=== PATIENT | male | born 1960 | race Caucasian/White ===

== ENCOUNTER 2022-08-03 10:32 | Outpatient (OUT) | payer OTHER, SELFPAY ==
[2022-08-03 11:40] LABS: Basophils Absolute Auto 0.1 10^3/uL (0.0-0.1); Basophils Percent Auto 1.3 % (0.2-2.0); Eosinophils Absolute Auto 0.1 10^3/uL (0.0-0.7); Eosinophils Percent Auto 2.5 % (0.9-7.0); Hematocrit 46.7 % (42.0-54.0); Hemoglobin 15.8 g/dL (14.0-18.0); Immature Granulocytes Abs Auto 0.01 10^3/uL (0.00-0.03); Immature Granulocytes Pct Auto 0.2 % (0.0-0.5); Lymphocytes Absolute Auto 1.4 10^3/uL (1.2-3.8); Lymphocytes Percent Auto 28.4 % (20.5-60.0); Mean Corpuscular HGB Conc 33.8 g/dL (29.9-35.2); Mean Corpuscular Hemoglobin 28.3 pg (25.9-34.0); Mean Corpuscular Volume 83.7 fL (80.0-94.0); Mean Platelet Volume 9.5 fL (9.5-13.5); Monocytes Absolute Auto 0.5 10^3/uL (0.3-0.8); Monocytes Percent Auto 10.7 % (1.7-12.0); Neutrophils Absolute Auto 2.7 10^3/uL (1.4-6.5); Neutrophils Percent Auto 56.9 % (43.0-75.0); Platelet Count 217 10^3/uL (150-450); Red Blood Count 5.58 10^6/uL (4.70-6.10); White Blood Count 4.8 10^3/uL (4.0-11.0)
[2022-08-03 12:24] LABS: Alanine Aminotransferase 30 U/L (16-63); Albumin Globulin Ratio 1.3; Alkaline Phosphatase 52 U/L (46-116); Anion Gap 10.7; Aspartate Amino Transferase 21 U/L (15-37); BUN Creatinine Ratio 29.3; Bilirubin Total 1.2 mg/dL (0.2-1.0); Calcium 8.9 mg/dL (8.5-10.1); Carbon Dioxide 28.6 mmol/L (21.0-32.0); Chloride 107 mmol/L (98-107); Chol HDL Ratio 3.8; Cholesterol 183 mg/dL (<=200); Estimated GFR (African America >60 (>=60); Estimated GFR (Non-African Ame >60 (>=60); Globulin 3.2 g/dL; Glucose 94 mg/dL (74-106); HDL Cholesterol 48 mg/dL (40-60); LDL Cholesterol Calculated 119.8 mg/dL; Potassium 4.3 mmol/L (3.5-5.1); Sodium 142 mmol/L (136-145); Total Protein 7.2 g/dL (6.4-8.2); Triglycerides 76 mg/dL (<=150); VLDL CHOLESTEROL 15.2 mg/dL
[2022-08-03 13:10] LABS: Prostate Specific Antigen Scrn 1.04 ng/mL (<=4.00)
== END 2022-08-03 10:33 ==
LOC: LAB 10:37
PROVIDERS: PCP Internal Medicine; Visit Provider Internal Medicine
DX: Z00.00 Encounter for general adult medical examination without abnormal findings (principal); Z12.5 Encounter for screening for malignant neoplasm of prostate
CPT/HCPCS: 36415; 80053; 80061; 85025; G0103

== ENCOUNTER 2023-08-16 09:58 | Outpatient (OUT) | payer OTHER, SELFPAY ==
[2023-08-16 11:08] LABS: Basophils Absolute Auto 0.1 10^3/uL (0.0-0.1); Basophils Percent Auto 1.5 % (0.2-2.0); Eosinophils Absolute Auto 0.1 10^3/uL (0.0-0.7); Eosinophils Percent Auto 3.6 % (0.9-7.0); Hematocrit 43.7 % (42.0-54.0); Hemoglobin 14.2 g/dL (14.0-18.0); Immature Granulocytes Abs Auto 0.01 10^3/uL (0.00-0.03); Immature Granulocytes Pct Auto 0.3 % (0.0-0.5); Lymphocytes Absolute Auto 1.2 10^3/uL (1.2-3.8); Lymphocytes Percent Auto 29.6 % (20.5-60.0); Mean Corpuscular HGB Conc 32.5 g/dL (29.9-35.2); Mean Corpuscular Hemoglobin 28.7 pg (25.9-34.0); Mean Corpuscular Volume 88.3 fL (80.0-94.0); Mean Platelet Volume 9.7 fL (9.5-13.5); Monocytes Absolute Auto 0.4 10^3/uL (0.3-0.8); Monocytes Percent Auto 10.3 % (1.7-12.0); Neutrophils Absolute Auto 2.1 10^3/uL (1.4-6.5); Neutrophils Percent Auto 54.7 % (43.0-75.0); Platelet Count 198 10^3/uL (150-450); Red Blood Count 4.95 10^6/uL (4.70-6.10); Red Cell Distribution Width 13.5 % (11.0-15.0); White Blood Count 3.9 10^3/uL (4.0-11.0)
[2023-08-16 11:28] LABS: Alanine Aminotransferase 21 U/L (16-63); Albumin Globulin Ratio 1.4; Albumin Level 3.8 g/dL (3.4-5.0); Alkaline Phosphatase 48 U/L (46-116); Anion Gap 9.9; Aspartate Amino Transferase 20 U/L (15-37); BUN Creatinine Ratio 25.5; Bilirubin Total 1.5 mg/dL (0.2-1.0); Calcium 8.4 mg/dL (8.5-10.1); Carbon Dioxide 30.6 mmol/L (21.0-32.0); Chloride 108 mmol/L (98-107); Chol HDL Ratio 3.3; Cholesterol 144 mg/dL (<=200); Estimated GFR (African America >60 (>=60); Estimated GFR (Non-African Ame >60 (>=60); Globulin 2.7 g/dL; Glucose 90 mg/dL (74-106); HDL Cholesterol 44 mg/dL (40-60); LDL Cholesterol Calculated 92.4 mg/dL; Potassium 4.5 mmol/L (3.5-5.1); Sodium 144 mmol/L (136-145); Total Protein 6.5 g/dL (6.4-8.2); Triglycerides 38 mg/dL (<=150); VLDL CHOLESTEROL 7.6 mg/dL
[2023-08-16 11:59] LABS: Prostate Specific Antigen Scrn 1.05 ng/mL (<=4.00)
[2023-08-17 19:07] LABS: Lead, Blood (Adult) 11.3 ug/dL (0.0-3.4)
== END 2023-08-16 09:59 | disposition home or self-care (01) ==
LOC: LAB 10:00
PROVIDERS: PCP Internal Medicine; Visit Provider Internal Medicine
DX: Z00.00 Encounter for general adult medical examination without abnormal findings (principal)
CPT/HCPCS: 36415; 80053; 80061; 83655; 85025; G0103

== ENCOUNTER 2023-11-17 11:03 | Outpatient (OUT) | payer OTHER, SELFPAY ==
--- OUTSIDE RECORDS SUMMARY | 2023-11-17 11:10 | XMS_ITS | CCD ---
Author Organization [facility] Care Team Providers Care Piggyback Clerk Name Role Phone MAZIN QUIÑONEZ Unavailable Unavailable GENE STOCK Unavailable Unavailabl MAZIN Girno Unavailable Unavailable GENE STOCK Unavailable UnavailMAZIN Hitchcock Unavailable Unavailable MAZIN QUIÑONEZ Unavailable Unavailable NORA, DR WILSON Attending Unavailable BALL, DR WILSON Admitting Unavailable BALL, DR WILSON Primary Care Unavailable BALL, DR WILSON Consulting Unavailable BALL, DR WILSON Admitting Unavailable BALL, DR WILSON Primary Care Unavailable BALL, DR WILSON Consulting Unavailable BALL, DR WILSON Attending Unavailable [place] Unavailable Allergies Allergy Classification Reported Allergen(s) Allergy Type Date of Onset Reaction(s) Facility (8 sources) erythromycin; Translations: [ERYTHROMYCIN] Drug Allergy 08-24-2016 [facility], Unknown [facility] Repository Medications Current Medications Medication Drug Class(es) Dates Sig (Normalized) Sig (Original) amLODIPine 5 mg oral tablet (7 sources) Dihydropyridine Calcium Channel Monica Start: 06-20-2023 take 1 tablet by mouth once daily Amlodipine Active 0 .ROUTE .COMPLEX June 20, 2023 9:27am TAKE 1 TABLET BY MOUTH DAILY Start: 06-15-2023 End: 06-20-2023 take 1 tablet by mouth once daily Amlodipine Discontinued 0 .ROUTE .COMPLEX June 15, 2023 7:37am June 20, 2023 9:29am TAKE 1 TABLET BY MOUTH DAILY Start: 05-18-2023 End: 06-15-2023 take 5 mg by mouth once daily Amlodipine Discontinued 5 MG PO Daily May 18, 2023 12:00am June 15, 2023 7:37am Finasteride (11 sources) 5-alpha Reductase Inhibitor Start: 08-10-2023 Finasteride Active 0 .ROUTE .COMPLEX August 10, 2023 9:12am TAKE 1 TABLET DAILY Start: 05-12-2023 End: 08-10-2023 take 5 mg by mouth once daily Finasteride Discontinued 5 MG PO Daily May 12, 2023 12:00am August 10, 2023 9:12am take 1 tablet by masha th every twenty-four hours Finasteride 5 MG 1 tablet Orally Once a day Active pravastatin sodium 20 mg oral tablet (12 sources) HMG-CoA Reductase Inhibitor Start: 05-12-2023 Pravastatin Active 0 .ROUTE .COMPLEX 90 May 12, 2023 12:33pm TAKE 1 TABLET DAILY IN THE EVENING Start: 05-12-2023 End: 05-12-2023 take 20 mg by mouth once daily in the evening Pravastatin Discontinued 20 MG PO Every evening May 12, 2023 12:00am May 12, 2023 12:33pm Pravastatin Sodi um 20 mg TAKE 1 TABLET DAILY IN THE EVENING Active tamsulosin hydrochloride 0.4 mg oral capsule (11 sources) alpha-Adrenergic Monica Start: 05-12-2023 End: 08-16-2023 take 2 capsules by mouth once daily at dinner Tamsulosin Active 0.4 MG PO Twice daily 180 90 August 16, 2023 9:21am 2 Capsule Orally Once a day, after evening meal; take 2 capsules by m outh once daily at dinner Tamsulosin HCl 0.4 MG 2 Capsule Orally Once a day, after evening meal Active Completed/Discontinued Medications Medication Drug Class(es) Dates Sig (Normalized) Sig (Original) losartan potassium 25 mg oral tablet (7 sources) Angiotensin 2 Receptor Monica Start: 05-29-2023 End: 06-20-2023 take 25 mg by mouth once daily Losartan Discontinued 25 MG PO Daily June 15, 2023 12:25pm June 20, 2023 9:29am Problems Active Problems Problem Classification Problem Date Documented Date Episodic/Chronic Diseases of white blood cells (1 source) Leukopenia; Translations: [Decreased white blood cell count, unspecified] 08-16-2023 Chronic Disorders of lipid metabolism (17 sources) Pure hypercholesterolemia ; Translations: [Pure hypercholesterolemia , unspecified] Chronic Esophageal disorders (16 sources) Gastro-esophageal reflux disease with esophagitis; Translations: [Gastroesophageal reflux disease with esophagitis without hemorrhage] 05-20-2023 Chronic Essential hypertension (13 sources) Essential hypertension; Translations: [Essential (primary) hypertension] 05-20-2023 Chronic Genitourinary symptoms and ill-defined conditions (3 sources) Nocturia Episodic Hyperplasia of prostate (14 sources) Nocturia due to benign prostatic hypertrophy; Translations: [Benign prostatic hyperplasia with lower urinary tract symptoms] Chronic Other circulatory disease (3 sources) Elevated blood-pressure reading, without diagnosis of hypertension Episodic Other diseases of veins and lymphatics (9 sources) Peripheral venous insufficiency; Translations: [Venous insufficiency (chronic) (peripheral)] 05-20-2023 Episodic Other diseases of veins and lymphatics (6 sources) Venous insufficiency (chronic) (peripheral); Translations: [Venous (peripheral) insufficiency, unspecified] Episodic Other diseases of veins and lymphatics (1 source) Venous insufficiency of leg; Translations: [Venous insufficiency (chronic) (peripheral)] 05-20-2023 Episodic Other nutritional; endocrine; and metabolic disorders (1 source) Hypocalcemia; Translations: [Hypocalcemia] 08-16-2023 Chronic Other nutritional; endocrine; and metabolic disorders (3 sources) Overweight Episodic Other screening for suspected conditions (not mental disorders or infectious disease) (9 sources) Encounter for screening for malignant neoplasm of prostate; Translations: [Patient encounter status] Onset: 08-18-2021 Episodic Past or Other Problems Problem Classification Problem Date Documented Date Episodic/Chronic Abdominal hernia (2 sources) Unilateral inguinal hernia, without obstruction or gangrene, not specified as recurrent; Translations: [Umbilical hernia without obstruction or gangrene] Onset: 02-18-2017 Episodic Other nervous system disorders (1 source) Other acute postprocedural pain; Translations: [Other acute postprocedural pain] Onset: 02-18-2017 Episodic Results Test Name Value Interpretation Reference Range Facility Basophils Auto (Bld) [#/Vol] on 08-16-2023 Basophils (Bld) [#/Vol] 0.1 10 3/uL 0.0-0.[address] [facility] Basophils/100 WBC Auto (Bld) on 08-16-2023 Basophils/100 WBC (Bld) 1.5 % 0.2-2.[address] [facility] Blood lead detectionon 08-15 Lead Ql (Bld) 11.3 ug/dL Abnormal 0.0-3.[address] [facility] Comment on above: Testing performed by Inductively coupled plasma/MassSpectrometry.Verified by repeat analysisAnalysis by inductively coupled plasma/massspectrometry (ICP/MS)This test was developed and its performance characteristicsdetermined by [employer]. It has not been cleared orapproved by the Food and Drug Administration. Environmental Exposure: WHO Recommendation <5.0 Occupational Exposure: OSHA Lead Std 40.0 [place] 30.0 Detection Limit = 1.0Performed at: [place] [id number] Director: Maury Lopez PhD, Phone: [phone] Cholesterol in LDL Calc [Mas s/Vol]on 08-16-2023 Cholesterol in LDL [Mass/Vol] 92.4 mg/dL [facility] Comment on above: <100 mg/dl [id number] 0-129 mg/dl NEAR OR ABOVE [id number] mg/dl BORDERLINE [id number] mg/dl HIGH>190 mg/dl VERY HIGH Cholesterol in VLDL Calc [Ma ss/Vol]on 08-16-2023 Cholesterol in VLDL [Mass/Vol] 7.6 mg/dL [facility] Eosinophils/100 WBC Auto (Bl d)on 08-16-2023 Eosinophils/100 WBC (Bld) 3.6 % 0.9-7.[address] [facility] Erythrocyte distribution wid th Auto (RBC) [Ratio]on 08-16-2023 Erythrocyte distribution width (RBC) [Ratio] 13.5 % 11.0-15.[address] [facility] Estimated glomerular filtrat ion rate (GFR) non- Americanon 08-16-2023 GFR/1.73 sq M.predicted among non-blacks MDRD (S/P/Bld) [Vol rate/Area] mL/min/{1.73_m2} >=[address] [facility] Globulin Calc (S) [Mass/Vol] on 08-16-2023 Globulin (S) [Mass/Vol] 2.7 g/dL [facility] Hematocrit Auto (Bld) [Volum e fraction]on 08-16-2023 Hematocrit (Bld) [Volume fraction] 43.7 % 42.0-54.[address] [facility] Hemoglobin [Mass/volume] in Bloodon 08-16-2023 Hemoglobin (Bld) [Mass/Vol] 14.2 g/dL 14.0-18.[address] [facility] Laboratory - Chemistry and C hemistry - challengeon 08-16-2023 Albumin [Mass/Vol] 3.8 g/dL 3.4-5.0 [facility] ALP [Catalytic activity/Vol] 48 U/L 46-[address] [facility] ALT [Catalytic activity/Vol] 21 U/L 16-[address] [facility] AST [Catalytic activity/Vol] 20 U/L 15-[address] [facility] Bilirubin [Mass/Vol] 1.5 mg/dL High 0.2-1.[address] [facility] Calcium [Mass/Vol] 8.4 mg/dL Low 8.5-10.1 [facility] Chloride [Moles/Vol] 108 mmol/L High 98-[address] [facility] Cholesterol [Mass/Vol] 144 mg/dL <=[address] [facility] Cholesterol in HDL [Mass/Vol] 44 mg/dL 40-[address] [facility] Comment on above: > or =60 mg/dl - LOW CARDIOVASCULAR RISK<40 mg/dl - HIGH CARDIOVASCULAR RISK CO2 [Moles/Vol] 30.6 mmol/L 21.0-32.0 [facility] Creatinine [Mass/Vol] 0.98 mg/dL 0.70-1.[address] [facility] GFR/1.73 sq M.predicted MDRD (S/P/Bld) [Vol rate/Area] mL/min/{1.73_m2} >=[address] [facility] Glucose [Mass/Vol] 90 mg/dL 74-106 [facility] Potassium [Moles/Vol] 4.5 mmol/L 3.5-5.[address] [facility] Protein [Mass/Vol] 6.5 g/dL 6.4-8.2 [facility] Sodium [Moles/Vol] 144 mmol/L 136-145 [facility] Triglyceride [Mass/Vol] 38 mg/dL <=[address] [facility] Urea nitrogen [Mass/Vol] 25.0 mg/dL High 7.0-18.[address] [facility] Urea nitrogen/Creatinin e [Mass ratio] 25.5 mg/mg [facility] Laboratory - Hematology and Cell countson 08-16-2023 Immature granulocytes/100 WBC (Bld) 0.3 % 0.0-0.[address] [facility] Leukocytes [#/volume] correc hal for nucleated erythrocytes in Blood by Automated counon 08-16-2023 WBC corrected for nucl RBC Auto (Bld) [#/Vol] 3.9 10 3/uL Low 4.0-11.[address] [facility] Lymphocytes Auto (Bld) [#/Vo l]on 08-16-2023 Lymphocytes (Bld) [#/Vol] 1.2 10 3/uL 1.2-3.[address] [facility] Lymphocytes/100 WBC Auto (Bl d)on 08-16-2023 Lymphocytes/100 WBC (Bld) 29.6 % 20.5-60.[address] [facility] MCH Auto (RBC) [Entitic mass ]on 08-16-2023 MCH (RBC) [Entitic mass] 28.7 pg 25.9-34.[address] [facility] MCHC Auto (RBC) [Mass/Vol]on 08-16-2023 MCHC (RBC) [Mass/Vol] 32.5 g/dL 29.9-35.[address] [facility] MCV Auto (RBC) [Entitic vol] on 08-16-2023 MCV (RBC) [Entitic vol] 88.3 fL 80.0-94.[address] [facility] Monocytes Auto (Bld) [#/Vol] on 08-16-2023 Monocytes (Bld) [#/Vol] 0.4 10 3/uL 0.3-0.[address] [facility] Monocytes/100 WBC Auto (Bld) on 08-16-2023 Monocytes/100 WBC (Bld) 10.3 % 1.7-12.[address] [facility] Neutrophils Auto (Bld) [#/Vo l]on 08-16-2023 Neutrophils (Bld) [#/Vol] 2.1 10 3/uL 1.4-6.[address] [facility] Neutrophils/100 WBC Auto (Bl d)on 08-16-2023 Neutrophils/100 WBC (Bld) 54.7 % 43.0-75.[address] [facility] No Panel Informationon 08-15 Eosinophils # (Auto) 0.1 10 3/uL 0.0-0.[address] [facility] Immature Granulocyte # (Auto) 0.01 10 3/uL 0.00-0.[address] [facility] Prostate Specific Antigen Screen 1.05 ng/mL <=4.[address] [facility] Platelet mean volume Auto (B ld) [Entitic vol]on 08-16-2023 Platelet mean volume (Bld) [Entitic vol] 9.7 fL 9.5-13.[address] [facility] Platelets Auto (Bld) [#/Vol] on 08-16-2023 Platelets (Bld) [#/Vol] 198 10 3/uL 150-[address] [facility] RBC Auto (Bld) [#/Vol]on RBC (Bld) [#/Vol] 4.95 10 6/uL 4.70-6.10 [facility] Serum or plasma albumin/glob ulin mass ratioon 08-16-2023 Albumin/Globulin [Mass ratio] 1.4 {ratio} [facility] Serum or plasma anion gap de terminationon 08-16-2023 Anion gap [Moles/Vol] 9.9 mmol/L [facility] Serum or plasma total choles terol/high density lipoprotein (HDL) cholesterol mass kg 08-16-2023 Cholesterol.total/ Cholesterol in HDL [Mass ratio] 3.3 {ratio} [facility] Comment on above: 3.3 - 4.4 LOW RISK4. 4 - 7.1 AVERAGE RISK7.1 - 11.0 MODERATE RISK>11.0 HIGH RISK CBC AUTO DIFFon 08-14-2021 BASO # 0.0 103/ul Normal 0.0-0.1 [facility] Comment on above: Performed By: #### C BC #### [facility] [address] [place] [address] Dr. Ridge Conklin Basophils/100 WBC (Bld) 0.9 % Normal 0.2-2.0 [facility] Comment on above: Performed By: #### C BC #### [facility] [address] [place] [address] Dr. Ridge Conklin EO # 0.1 103/ul Normal 0.0-0.7 [facility] Comment on above: Performed By: #### C BC #### [facility] [address] [place] [address] Dr. Ridge Conklin Eosinophils/100 WBC (Bld) 1.1 % Normal 0.9-7.0 [facility] Comment on above: Performed By: #### C BC #### [facility] [address] [place] [address] Dr. Ridge Conklin Erythrocyte distribution width (RBC) [Ratio] 13.3 % Normal 11.0-15.0 [facility] Comment on above: Performed By: #### C BC #### [facility] [address] [place] [address] Dr. Ridge Conklin Hematocrit (Bld) [Volume fraction] 46.6 % Normal 42.0-54.0 [facility] Comment on above: Performed By: #### C BC #### [facility] [address] [place] [address] Dr. Ridge Conklin Hemoglobin (Bld) [Mass/Vol] 15.3 g/dL Normal 14.0-18.0 [facility] Comment on above: Performed By: #### C BC #### [facility] [address] [place] [address] Dr. Ridge Conklin IG # 0.00 10e3/ul Normal 0.00-0.03 [facility] Comment on above: Performed By: #### C BC #### [facility] [address] [place] [address] Dr. Ridge Conklin IG % 0.0 % Normal 0.0-0.5 [facility] Comment on above: Performed By: #### C BC #### [facility] [address] [place] [address] Dr. Ridge Conklin LYMPH # 1.0 103/ul Critically low 1.2-3.8 [facility] Comment on above: Performed By: #### C BC #### [facility] [address] [place] [address] Dr. Ridge Conklin Lymphocytes/100 WBC (Bld) 22.0 % Normal 20.5-60.0 [facility] Comment on above: Performed By: #### C BC #### [facility] [address] [place] [address] Dr. Ridge Conklin MANUAL DIFF REQ NO Normal [facility] Comment on above: Performed By: #### C BC #### [facility] [address] [place] [address] Dr. Ridge Conklin MCH (RBC) [Entitic mass] 28.8 pg Normal 25.9-34.0 [facility] Comment on above: Performed By: #### C BC #### [facility] [address] [place] [address] Dr. Ridge Conklin MCHC (RBC) [Mass/Vol] 32.8 g/dL Normal 29.9-35.2 [facility] Comment on above: Performed By: #### C BC #### [facility] [address] [place] [address] Dr. Ridge Conklin MCV (RBC) [Entitic vol] 87.6 fL Normal 80.0-94.0 [facility] Comment on above: Performed By: #### C BC #### [facility] [address] [place] [address] Dr. Ridge Conklin MONO # 0.4 103/ul Normal 0.3-0.8 [facility] Comment on above: Performed By: #### C BC #### [facility] [address] [place] [address] Dr. Ridge Conklin Monocytes/100 WBC (Bld) 9.4 % Normal 1.7-12.0 [facility] Comment on above: Performed By: #### C BC #### [facility] [address] [place] [address] Dr. Ridge Conklin NEUT # 3.0 103/ul Normal 1.4-6.5 [facility] Comment on above: Performed By: #### C BC #### [facility] [address] [place] [address] Dr. Ridge Conklin Neutrophils/100 WBC (Bld) 66.6 % Normal 43.0-75.0 [facility] Comment on above: Performed By: #### C BC #### [facility] [address] [place] [address] [address] Ridge Conklin Platelet mean volume (Bld) [Entitic vol] 9.1 fL Critically low 9.5-13.5 [facility] Comment on above: Performed By: #### C BC #### [facility] [address] [place] [address] [address] Ridge Conklin PLT 213 103/ul Normal 150-450 [facility] Comment on above: Performed By: #### C BC #### [facility] [address] [place] [address] [address] Ridge Conklin RBC 5.32 106/ul Normal 4.70-6.10 [facility] Comment on above: Performed By: #### C BC #### [facility] [address] [place] [address] Dr. Ridge Conklin WBC 4.5 103/ul Normal 4.0-11.0 [facility] Comment on above: Performed By: #### C BC #### [facility] [address] [place] [address] Dr. Ridge Conklin LIPID PROFILEon 08-14-2021 CHOL-HDL RATIO NORM SEE BELOW Normal [facility] Comment on above: Result Comment: 3.3 - 4.4 LOW RISK 4.4 - 7.1 AVERAGE RISK 7.1 - 11.0 MODERATE RISK >11.0 HIGH RISK Performed By: #### T SH, CMP, LIPID #### [facility] [address] [place] [address] Dr. Ridge Conklin Cholesterol [Mass/Vol] 154 mg/dL Normal <=200 [facility] Comment on above: Performed By: #### T SH, CMP, LIPID #### [facility] [address] [place] [address] Dr. Ridge Conklin Cholesterol in HDL [Mass/Vol] 45 mg/dL Normal 40-60 [facility] Comment on above: Performed By: #### T SH, CMP, LIPID #### [facility] [address] [place] [address] Dr. Ridge Conklin Cholesterol in LDL [Mass/Vol] 101.2 mg/dL Normal [facility] Comment on above: Performed By: #### T SH, CMP, LIPID #### [facility] [address] [place] [address] [address] Ridge Conklin Cholesterol.total/ Cholesterol in HDL [Mass ratio] 3.4 {ratio} Normal [facility] Comment on above: Performed By: #### T SH, CMP, LIPID #### [facility] [address] [place] [address] [address] Ridge Conklin HDL NORMAL > or = 60 mg/dl - LO W CARDIOVASCULAR RISK <40 mg/dl - HIGH CARDIOVASCULAR RISK Normal [facility] Comment on above: Performed By: #### T SH, CMP, LIPID #### [facility] [address] [place] [address] Dr. Ridge Conklin LDL CALC NORMAL SEE BELOW Normal [facility] Comment on above: Result Comment: <100 mg/dl OPTIMAL 100 - 129 mg/dl NEAR OR ABOVE OPTIMAL 130 - 159 mg/dl BORDERLINE HIGH 160 - 189 mg/dl HIGH >190 mg/dl VERY HIGH Performed By: #### T SH, CMP, LIPID #### [facility] [address] [place] [address] Dr. Ridge Conklin Triglyceride [Mass/Vol] 39 mg/dL Normal <=150 [facility] Comment on above: Performed By: #### T SH, CMP, LIPID #### [facility] [address] [place] [address] Dr. Ridge Conklin VLDL CALC 7.8 mg/dL Normal [facility] Comment on above: Performed By: #### T SH, CMP, LIPID #### [facility] [address] [place] [place] [address] [address] Ridge Conklin PROF 14(COMP METB)on 022 Albumin [Mass/Vol] 4.3 g/dL Normal 3.4-5.0 [facility] Comment on above: Performed By: #### T SH, CMP, LIPID #### [facility] [address] [place] [address] Dr. Ridge Conklin Albumin/Globulin [Mass ratio] 1.5 {ratio} Normal [facility] Comment on above: Performed By: #### T SH, CMP, LIPID #### [facility] [address] [place] [address] [address] Ridge Conklin ALP [Catalytic activity/Vol] 47 U/L Normal 46-116 [facility] Comment on above: Performed By: #### T SH, CMP, LIPID #### [facility] [address] [place] [address] [address] Ridge Conklin ALT [Catalytic activity/Vol] 25 U/L Normal 16-63 [facility] Comment on above: Performed By: #### T SH, CMP, LIPID #### [facility] [address] [place] [address] Dr. Ridge Conklin Anion gap [Moles/Vol] 12.6 mmol/L Normal [facility] Comment on above: Performed By: #### T SH, CMP, LIPID #### [facility] [address] [place] [address] Dr. Ridge Conklin AST [Catalytic activity/Vol] 17 U/L Normal 15-37 [facility] Comment on above: Performed By: #### T SH, CMP, LIPID #### [facility] [address] [place] [address] Dr. Ridge Conklin Bilirubin [Mass/Vol] 1.4 mg/dL Critically high 0.2-1.0 [facility] Comment on above: Performed By: #### T SH, CMP, LIPID #### [facility] [address] [place] [address] Dr. Ridge Conklin Calcium [Mass/Vol] 8.9 mg/dL Normal 8.5-10.1 [facility] Comment on above: Performed By: #### T SH, CMP, LIPID #### [facility] [address] [place] [address] Dr. Ridge Conklin Chloride [Moles/Vol] 108 mmol/L Critically high 98-107 [facility] Comment on above: Performed By: #### T SH, CMP, LIPID #### [facility] [address] [place] [address] Dr. Ridge Conklin CO2 [Moles/Vol] 26.5 mmol/L Normal 21.0-32.0 [facility] Comment on above: Performed By: #### T AIDEN CMP, LIPID #### [facility] [address] [place] [address] [address] Ridge Conklin Creatinine [Mass/Vol] 1.10 mg/dL Normal 0.70-1.30 [facility] Comment on above: Performed By: #### T AIDEN, CMP, LIPID #### [facility] [address] [place] [address] [address] Ridge Conklin EGFR-AF PALESTINIAN >60 Normal >=60 [facility] Comment on above: Performed By: #### T AIDEN CMP, LIPID #### [facility] [address] [place] [address] Dr. Ridge Conklin EGFR-NON AF PALESTINIAN >60 Normal >=60 [facility] Comment on above: Performed By: #### T AIDEN CMP, LIPID #### [facility] [address] [place] [address] [address] Ridge Conklin Globulin (S) [Mass/Vol] 2.8 g/dL Normal [facility] Comment on above: Performed By: #### T AIDEN CMP, LIPID #### [facility] [address] [place] [address] Dr. Ridge Conklin Glucose [Mass/Vol] 98 mg/dL Normal 74-106 [facility] Comment on above: Performed By: #### T AIDEN CMP, LIPID #### [facility] [address] [place] [address] [address] Ridge Conklin Potassium [Moles/Vol] 4.1 mmol/L Normal 3.5-5.1 [facility] Comment on above: Performed By: #### T AIDEN, CMP, LIPID #### [facility] [address] [place] [address] [address] Ridge Conklin Protein [Mass/Vol] 7.1 g/dL Normal 6.4-8.2 [facility] Comment on above: Performed By: #### T AIDEN, CMP, LIPID #### [facility] [address] [place] [address] Dr. Ridge Conklin Sodium [Moles/Vol] 143 mmol/L Normal 136-145 [facility] Comment on above: Performed By: #### T AIDEN, CMP, LIPID #### [facility] [address] [place] [address] Dr. Ridge Conklin Urea nitrogen [Mass/Vol] 31.0 mg/dL Critically high 7.0-18.0 [facility] Comment on above: Performed By: #### T AIDEN, CMP, LIPID #### [facility] [address] [place] [address] Dr. Ridge Conklin Urea nitrogen/Creatinin e [Mass ratio] 28.2 mg/mg Normal [facility] Comment on above: Performed By: #### T AIDEN, CMP, LIPID #### [facility] [address] [place] [address] Dr. Ridge Conklin TSHon 08-14-2021 TSH 1.108 uIU/mL Normal 0.358-3.740 [facility] Comment on above: Performed By: #### T AIDEN, CMP, LIPID #### [facility] [address] [place] [address] Dr. Ridge Conklin CBC AUTO DIFFon 10-02-2020 BASO # 0.0 103/ul Normal 0.0-0.1 [facility] Comment on above: Performed By: #### C BC #### [facility] [address] [place] [address] Gabi Rosailnd Basophils/100 WBC (Bld) 0.6 % Normal 0.2-2.0 [facility] Comment on above: Performed By: #### C BC #### [facility] [address] [place] [address] Gabi Rosalind EO # 0.1 103/ul Normal 0.0-0.7 [facility] Comment on above: Performed By: #### C BC #### [facility] [address] [place] [address] Gabi Rosalind Eosinophils/100 WBC (Bld) 1.8 % Normal 0.9-7.0 [facility] Comment on above: Performed By: #### C BC #### [facility] [address] [place] [address] Gabi Rosalind Erythrocyte distribution width (RBC) [Ratio] 13.3 % Normal 11.0-15.0 [facility] Comment on above: Performed By: #### C BC #### [facility] [address] [place] [address] Gabi Rosalind Hematocrit (Bld) [Volume fraction] 47.5 % Normal 42.0-54.0 [facility] Comment on above: Performed By: #### C BC #### [facility] [address] [place] [address] Gabi Rosalind Hemoglobin (Bld) [Mass/Vol] 15.4 g/dL Normal 14.0-18.0 [facility] Comment on above: Performed By: #### C BC #### [facility] [address] [place] [address] Gabi Rosalind IG # 0.01 10e3/ul Normal 0.00-0.03 [facility] Comment on above: Performed By: #### C BC #### [facility] [address] [place] [address] Gabi Rosalind IG % 0.2 % Normal 0.0-0.5 [facility] Comment on above: Performed By: #### C BC #### [facility] [address] [place] [address] Gabi Rosalind LYMPH # 1.0 103/ul Critically low 1.2-3.8 [facility] Comment on above: Performed By: #### C BC #### [facility] [address] [place] [address] Gabi Rosalind Lymphocytes/100 WBC (Bld) 20.3 % Critically low 20.5-60.0 [facility] Comment on above: Performed By: #### C BC #### [facility] [address] [place] [address] Gabi Rosalind MANUAL DIFF REQ NO Normal [facility] Comment on above: Performed By: #### C BC #### [facility] [address] [place] [address] Gabi Boyer MCH (RBC) [Entitic mass] 28.6 pg Normal 25.9-34.0 [facility] Comment on above: Performed By: #### C BC #### [facility] [address] [place] [address] Gabi Boyer MCHC (RBC) [Mass/Vol] 32.4 g/dL Normal 29.9-35.2 [facility] Comment on above: Performed By: #### C BC #### [facility] [address] [place] [address] Gabi Boyer MCV (RBC) [Entitic vol] 88.1 fL Normal 80.0-94.0 [facility] Comment on above: Performed By: #### C BC #### [facility] [address] [place] [address] Gabi Boyer MONO # 0.5 103/ul Normal 0.3-0.8 [facility] Comment on above: Performed By: #### C BC #### [facility] [address] [place] [address] Gabi Boyer Monocytes/100 WBC (Bld) 9.9 % Normal 1.7-12.0 [facility] Comment on above: Performed By: #### C BC #### [facility] [address] [place] [address] Gabi Boyer NEUT # 3.3 103/ul Normal 1.4-6.5 [facility] Comment on above: Performed By: #### C BC #### [facility] [address] [place] [address] Gabi Boyer Neutrophils/100 WBC (Bld) 67.2 % Normal 43.0-75.0 [facility] Comment on above: Performed By: #### C BC #### [facility] [address] [place], [place] [id number] Gabi Boyer Platelet mean volume (Bld) [Entitic vol] 9.3 fL Critically low 9.5-13.5 [facility] Comment on above: Performed By: #### C BC #### [facility] [address] [place], [place] [address] Gabi Rosalind PLT 200 103/ul Normal 150-450 [facility] Comment on above: Performed By: #### C BC #### [facility] [address] [address] Gabi Rosalind RBC 5.39 106/ul Normal 4.70-6.10 [facility] Comment on above: Performed By: #### C BC #### [facility] [address] [id number] Gabi Rosalind WBC 4.9 103/ul Normal 4.0-11.0 [facility] Comment on above: Performed By: #### C BC #### [facility] [address] [place] [address] Gabi Rosalind LIPID PROFILEon 10-02-2020 CHOL-HDL RATIO NORM SEE BELOW Normal [facility] Comment on above: Result Comment: 3.3 - 4.4 LOW RISK 4.4 - 7.1 AVERAGE RISK 7.1 - 11.0 MODERATE RISK >11.0 HIGH RISK Performed By: #### T SH, CMP, LIPID #### [facility] [address] [place] [address] Gabi Rosalind Cholesterol [Mass/Vol] 155 mg/dL Normal <=200 [facility] Comment on above: Performed By: #### T SH, CMP, LIPID #### [facility] [address] [place] [address] Gabi Rosalind Cholesterol in HDL [Mass/Vol] 47 mg/dL Normal [facility] Comment on above: Performed By: #### T SH, CMP, LIPID #### [facility] [address] [place] [address] Gabi Rosalind Cholesterol in LDL [Mass/Vol] 91.0 mg/dL Normal [facility] Comment on above: Performed By: #### T SH, CMP, LIPID #### [facility] [address] [place] [address] Gabi Rosalind Cholesterol.total/ Cholesterol in HDL [Mass ratio] 3.3 {ratio} Normal [facility] Comment on above: Performed By: #### T SH, CMP, LIPID #### [facility] [address] [place] [address] Gabi Rosalind HDL NORMAL > or = 60 mg/dl - LO W CARDIOVASCULAR RISK <40 mg/dl - HIGH CARDIOVASCULAR RISK Normal [facility] Comment on above: Performed By: #### T AIDEN, CMP, LIPID #### [facility] [address] [id number] Gabi Rosalind LDL CALC NORMAL SEE BELOW Normal [facility] Comment on above: Result Comment: <100 mg/dl OPTIMAL 100 - 129 mg/dl NEAR OR ABOVE OPTIMAL 130 - 159 mg/dl BORDERLINE HIGH 160 - 189 mg/dl HIGH >190 mg/dl VERY HIGH Performed By: #### T AIDEN, CMP, LIPID #### [facility] [address] [place] [address] Gabi Rosalind Triglyceride [Mass/Vol] 85 mg/dL Normal <=150 [facility] Comment on above: Performed By: #### T AIDEN CMP, LIPID #### [facility] [address] [place] [address] Gabi Rosalind VLDL CALC 17.0 mg/dL Normal [facility] Comment on above: Performed By: #### T AIDEN, CMP, LIPID #### [facility] [address] [place], [place] [phone] Gabi Boyer PROF 14(COMP METB)on 021 Albumin [Mass/Vol] 4.5 g/dL Normal 3.5-5.0 [facility] Comment on above: Performed By: #### T AIDEN, CMP, LIPID #### [facility] [address] [place], [place] [address] Gabi Rosalind Albumin/Globulin [Mass ratio] 1.5 {ratio} Normal [facility] Comment on above: Performed By: #### T SH, CMP, LIPID #### [facility] [address] [place], [place] [address] Gabi Rosalind ALP [Catalytic activity/Vol] 38 U/L Normal 38-126 [facility] Comment on above: Performed By: #### T SH, CMP, LIPID #### [facility] [address] [place] [address] Gabi Rosalind ALT [Catalytic activity/Vol] 20 U/L Critically low 21-72 [facility] Comment on above: Performed By: #### T SH, CMP, LIPID #### [facility] [address] [place] [address] Gabi Rosalind Anion gap [Moles/Vol] 13.7 mmol/L Normal [facility] Comment on above: Performed By: #### T SH, CMP, LIPID #### [facility] [address] [place] [address] Gabi Rosalind AST [Catalytic activity/Vol] 22 U/L Normal 17-59 [facility] Comment on above: Performed By: #### T SH, CMP, LIPID #### [facility] [address] [place] [address] Gabi Rosalind Bilirubin [Mass/Vol] 0.7 mg/dL Normal 0.2-1.3 [facility] Comment on above: Performed By: #### T SH, CMP, LIPID #### [facility] [address] [place] [address] Gabi Rosalind Calcium [Mass/Vol] 8.9 mg/dL Normal 8.4-10.2 [facility] Comment on above: Performed By: #### T SH, CMP, LIPID #### [facility] [address] [place] [address] Gabi Rosalind Chloride [Moles/Vol] 108 mmol/L Critically high 98-107 [facility] Comment on above: Performed By: #### T SH, CMP, LIPID #### [facility] [address] [place] [address] Gabi Rosalind CO2 [Moles/Vol] 28.1 mmol/L Normal 22.0-30.0 [facility] Comment on above: Performed By: #### T SH, CMP, LIPID #### [facility] [address] [place] [address] Gabi Rosalind Creatinine [Mass/Vol] 0.89 mg/dL Normal 0.66-1.25 [facility] Comment on above: Performed By: #### T SH, CMP, LIPID #### [facility] [address] [place], [place] [address] Gabi Rosalind EGFR-AF PALESTINIAN >60 Normal >=60 [facility] Comment on above: Performed By: #### T SH, CMP, LIPID #### [facility] [address] [phone] Gabi Rosalind EGFR-NON AF PALESTINIAN >60 Normal >=60 [facility] Comment on above: Performed By: #### T SH, CMP, LIPID #### [facility] [address] [id number] Gabi Rosalind Globulin (S) [Mass/Vol] 3.0 g/dL Normal [facility] Comment on above: Performed By: #### T SH, CMP, LIPID #### [facility] [address] [place] [address] Gabi Rosalind Glucose [Mass/Vol] 104 mg/dL Normal 74-106 [facility] Comment on above: Performed By: #### T SH, CMP, LIPID #### [facility] [address] [place] [address] Gabi Rosalind Potassium [Moles/Vol] 4.8 mmol/L Normal 3.4-5.0 [facility] Comment on above: Performed By: #### T SH, CMP, LIPID #### [facility] [address] [place] [address] Gabi Rosalind Protein [Mass/Vol] 7.5 g/dL Normal 6.1-8.2 [facility] Comment on above: Performed By: #### T SH, CMP, LIPID #### [facility] [address] [place] [address] Gabi Rosalind Sodium [Moles/Vol] 145 mmol/L Normal 137-145 [facility] Comment on above: Performed By: #### T SH, CMP, LIPID #### [facility] [address] [place] [address] Gabi Rosalind Urea nitrogen [Mass/Vol] 28.0 mg/dL Critically high 9.0-20.0 [facility] Comment on above: Performed By: #### T SH, CMP, LIPID #### [facility] [address] [place], [place] [address] Gabi Rosalind Urea nitrogen/Creatinin e [Mass ratio] 31.5 mg/mg Normal [facility] Comment on above: Performed By: #### T AIDEN, CMP, LIPID #### [facility] [address] [place] [address] Gabi Boyer TSHon 10-02-2020 TSH 1.974 uIU/mL Normal 0.470-4.680 [facility] Comment on above: Performed By: #### T AIDEN, CMP, LIPID #### [facility] [address] [place] [address] Gabi Boyer TSH RANGE SEE BELOW Normal [facility] Comment on above: Result Comment: <0.3 4 UIU/ml HYPERTHYROID 0.34-5.60 UIU/ml EUTHYROID >5.60 UIU/ml HYPOTHYROID Performed By: #### T AIDEN, CMP, LIPID #### [facility] [address] [place] [address] Gabi Boyer CNPAwa 11-29-2017 CNPN Telephone (AVPRAD) ----CHRISTOPH GARCIA ([id number]) 1960 MDate Time Provider Owryamrlhy45/2/18 MAGGI GARCIA) AVPELIZABETH During your visit today, we recorded the following information about you:Maggi Garcia PA-C 11/29/2017 3:43 PM SignedCalled patient and LMOVM to call our office back. Patient has been having leftflank and groin pain, so we had him get an urinalysis today. Resultsdemonstrated urine crystals. Discussed with Dr. Quiñonez. He recommends drinkingcranberry juice and a lot of water to hydrate himself and that should clear upon its own. No indication of infection. When patient calls back, please relaymessage below. Thank you.Allergies As of Date: 11/29/2017 Noted Allergy ReactionERTHROMYCIN (ERYTHROMYCIN) 08/24/2016 4 - HivesDate Reviewed: 11/29/2017Reviewed by: Mazin Quiñonez - Jong AssessedReason for Visit: Results [95]Prescriptions as of 11/29/2017 Sig: FINASTERIDE 5 MG TABLET TAMSULOSIN 0.4 MG CAPSULE Take 0.4 mg by mouth. PRAVASTATIN 20 MG TABLET Take 20 mg by mouth once araseli*Problem List As Of Date 11/29/2017 Noted Resolved Inguinal hernia [K40.90] INVALID FOR* More... Umbilical hernia [K42.9] INVALID FOR* More... Status:Closed by MAGGI GARCIA PA-C on 11/29/17 [facility] [facility] Office Visit (GENANMOL) ----CHRISTOPH GARCIA ([id number]) 1960 MDate Time Provider Department03/08/17 10:45 AM MAZIN QUIÑONEZ During your visit today, we recorded the following information about you:Referring Provider: GENE STOCK [[id number]]Allergies As of Date: 03/08/2017 Noted Allergy ReactionERTHROMYCIN (ERYTHROMYCIN) 08/24/2016 4 - HivesDate Reviewed: 03/08/2017Reviewed by: Mazin Quiñonez - Jong AssessedReason for Visit: Post Op [174]Primary Visit Diagnosis:Non-recurrent unilateral inguinal hernia without obstruction or gangrene [K40.90] Other Visit Diagnosis:Umbilical hernia without obstruction and without gangrene [K42.9]Prescriptions as of 03/08/2017 Sig: TAMSULOSIN 0.4 MG CAPSULE Take 0.4 mg by mouth. PRAVASTATIN 20 MG TABLET Take 20 mg by mouth once araseli*Problem List As Of Date 03/08/2017 Noted Resolved Inguinal hernia [K40.90] INVALID FOR* More... Umbilical hernia [K42.9] INVALID FOR* More... Status:Closed by MAZIN QUIÑONEZ MD on 03/08/17 Normal [facility] PROGRESSon 03-08-2017 PROGRESS HNO ID: [id number] thor: Mazin Mcgrathervice: General SurgeryAuthor Type: PhysicianType: Progress NotesFiled: 03/08/2017 1:18 PMNote Text:[facility] General SurgeryMazin Quiñonez M.D., F.A.CWoody.[facility]botCritical [facility] Hospital[address] [facility].[place], [place] [address]Riwhj: [phone]: [phone]: CHRISTOPH GARCIA [facility] NO: [id number] OF SERVICE: 03/08/2017PLACE OF ENCOUNTER: [place]The patient is status post repair of left inguinal hernia and umbilicalhernia on 02/18/2017. The patient is very pleased and doing extremelywell to date. Minor intermittent discomfort in the left groin withspecific movements. This is gradually improving and allowing him toperform all normal activities that he desires without restriction. He isreturned to work for some time now. In fact, he went back four dayspostop. The wound is healing nicely. He can gradually resume tonormal activities. He will call or return as needed.MAZIN QUIÑONEZ M.D.BB/100Audio #: [id number] Dictated: 03/08/2017 11:50:10Date Typed: 03/08/2017 12:37:14Date Revised: Normal [facility] ANES Ramiro 02-18-2017 ANES POST HNO ID: [id number] thor: Yisel Bankservice: AnesthesiologyAuthor Type: PhysicianType: Anesthesia PostOpFiled: 02/18/2017 1:42 PMNote Text:POST ANESTHESIA EVALUATION NOTESERVICE DATE: 02/18/2017SERVICE TIME: 1342DOB: 1960Vitals: 02/18/1713Temp: 36.5 ?C (97.7 ?F) 36.5 ?C (97.7 ?F) 02/18/1713P: 149/74 155/88 02/18/1713ulse: 60 100 02/18/1713Resp: 16 18 02/18/1713SpO2: 100% 96%Validated Vital Signs: YesPOST ANES STATUS: No apparent anesthetic complications. The patient isappropriately hydrated with stable respiratory and cardiovascular status.Patient has safe and adequate airway control. The patient has appropriatepain relief and no significant post operative nausea or vomiting. Thepatient has achieved baseline mental status.Further assessment by Anesthesia Service: NoneOther Remarks:SIGNATURE: Yisel Levy MD PATIENT NAME: Christoph GarciaDATE: February 18, 2017 : 1:42 PM PAGER/CONTACT #: [phone] [facility] ANES PREOPon 02-18-2017 ANES PREOP HNO ID: [id number] thor: Yisel Bankservice: AnesthesiologyAuthor Type: PhysicianType: Anesthesia PreOpFiled: 02/18/2017 10:51 AMNote Text: ANESTHESIOLOGY DAY OF SURGERY NOTESERVICE DATE: 02/18/2017SERVICE TIME: 1050DOB: 1960Procedure(s) (LRB):HERNIORRHAPHY INGUINAL ELECTIVE ADULT REDUCIBLE (Left)HERNIORRHAPHY UMBILICAL ADULT (N/A)Surgeon(s):Mazin Peters is no height or weight on file to calculate BMI.Most recent hematocrit and potassium results:No results found for this basename: HCT,HEMATOCRIT,K,POTASSIUMAN ES DOS/PREOP NOTE:Vitals:There were no vitals filed for this visit.ACTIVE PROBLEM LISTInguinal HerniaUmbilical HerniaPAST MEDICAL HISTORYDiagnosis Date- NEGATIVE MEDICAL HISTORY No TB, pneum, heart, DM, CAPAST SURGICAL HISTORYProcedure Laterality Date- APPENDECTOMY 1979FAMILY HISTORYProblem Relation Age of Onset- COPD Mother- Other [OTHER] Father Parkinson'sSocial History:Social HistorySubstance Use Topics- Smoking status: Never Smoker- Smokeless tobacco: Never Used- Alcohol use NoNo current facility-administered medications on file prior to encounter.Current Outpatient Prescriptions on File Prior to Encounter:tamsulosin ER (FLOMAX) 0.4 mg cp24 Take 0.4 mg by mouth.pravastatin (PRAVACHOL) 20 mg tablet Take 20 mg by mouth once daily.No current facility-administered medications for this encounter.Allergies:ALLERGIE SAllergen Reactions- Erthromycin [Erythr* HivesDOS EXAM: Adequate NPO Status: YesAnesthetic Risks, Benefits, Alternatives, Personnel and Consent Discussed:YesPatient agrees to proceed: YesPrevious Anesthesia: No history of adverse eventAirway Assessment: MP 2; Neck ROM: Full ROM without neurologic symptoms;Airway Evaluation: No significant abnormalitiesDentition: Teeth intactupper capsAdditional Physical Exam:Lungs: Patient health status unchanged since recent history and physical.See history and physical for exam findings.Cardiac: Patient health status unchanged since recent history andphysical. See history and physical for exam findings.Additional Pertinent Findings: N/ABlood Products: Not anticipated for this procedureAnesthetic Plan: GeneralAnesthetic Monitoring: Standard ASA MonitorsPain Management Plan: Parenteral or OralASA Class: 2Other Medical Problems: NoneChronic Beta Monica medication administered within 24 hours: N/AI have interviewed and examined the patient. I have reviewed the medicalrecord and/or the pre-anesthesia evaluation, pertinent labs, and testresults.Significant changes in the patient's condition since the History andPhysical, not otherwise documented in primary service progress notes: NoThis contains updated information obtained within 48 hours ofSurgery/Procedure.SIGNATUR E: Yisel Levy MD PATIENT NAME: Christoph GarciaDATE: February 18, 2017 : 10:50 AM CSN: [id number] [facility] NURSING PROGon 02-18-2017 Protein mass conc HNO ID: [id number] thor: Gisselle (Rn) Gilbert RNService: NursingAuthor Type: Registered NurseType: Nursing Progress NoteFiled: 02/18/2017 3:35 PMNote Text: 1520 Stable PACU stay- Drsgs dry and intact. Pain improved aftermedication. Taking fluids and snack well. Dr Quiñonez here- talked with pt.Home with in stable condition [facility] OPERATIVE NOon 02-18-2017 OPERATIVE NO HNO ID: [id number] thor: Mazin Mcgrathervice: General SurgeryAuthor Type: PhysicianType: Operative ReportFiled: 02/22/2017 1:04 PMNote Text:[facility] - Operative ReportSCHRISTOPH SHAH GDOB: 1960 AGE: 56 SEX: MMRN: [id number] CSN: [id number] SVC: GENS LOCATION: [id number] PHYSICIAN: Mazin Quiñonez M.D.DATE OF PROCEDURE: 02/18/2017PREOPERATIVE DIAGNOSIS: Left inguinal hernia and umbilical hernia.POSTOPERATIVE DIAGNOSIS: Left inguinal hernia and umbilical hernia. Theleft inguinal hernia was direct hernia.NAME OF OPERATION:SURGEON: Mazin Quiñonez M.D.MONITORING AND EVALUATION ADVISOR: NONEANESTHESIA:SPECIMENS: None.BLEEDING: None.DRAINS: None.COMPLICATIONS: None.FINDINGS: He had a broad base direct left inguinal hernia and smallumbilical hernia.START TIME: 1228 hours.FINISH TIME: 1308 hours.PROCEDURE: With the patient under adequate general anesthesia withlaryngeal mask airway, the entire abdomen was prepped and draped withHibiclens and Ioban drape in a sterile manner. Audible time-out wascompleted with all team members. Percutaneously, 0.25% Marcaine withepinephrine was infiltrated for inguinal and iliohypogastric nerveblock on the left prior to incision. This was next created anddeveloped sharply and with cautery, and bacitracin irrigation wasliberally utilized and 3-0 Polysorb was only suture used in the leftgroin. The external oblique was opened longitudinally along thelength of its fibers and gently reflected. The cord was encircledand elevated. There was no indirect component. There was a directcomponent, which was quite large. It was reduced in the preperitoneal plane opening through circumferentially the weakened transversalisfascia. There was no femoral or indirect component. The plug was placedinto the direct space and sewn securely to the inguinal ligamentinferiorly and internal oblique superiorly carefully avoiding nerveentrapment. The iliohypogastric superiorly was left in its nativefield, the direct and genitofemoral left attached to the cordundisturbed. Following the interrupted sutures placed into the plug inthe direct space, the onlay piece was pressed into the floor in goodposition and wrapped loosely laterally around the cord, sewn toitself, the inguinal ligament inferiorly, and internal oblique musclesuperiorly. Care given to avoidance of entrapment. Following this,a running locking suture of the external oblique interruptedScarpa's and dermis running at the skin. Steri- Strips wereapplied. Attention was next turned to the umbilical hernia. Thepatient was stable. We continued with umbilical hernia.Through an infraumbilical incision, dissection sharply, sac is opened,reduced, closed with [id number] of 3-0 Polysorb. Apreperitoneal plane was developed. Antibacterial solution wasutilized. Following this, a 4.3 cm plug was placed into thepreperitoneal plane in good position, completely deployed correctly,buried sutures of 0 Maxon reapproximated the fascia and 3-0reapproximated the dermis. Marcaine 0.25% with epinephrine wasinfiltrated in the fascia and skin for postop comfort. Steri-Stripswere applied. The patient tolerated the entire procedure withoutdifficulty. Sponge and needle counts were correct x2.As the operating surgeon, I was present throughout both procedures. [employer] international first officer, TRE Garcia was responsible for exposure, retraction, and assistance with wound closure.Mazin Quiñonez M.D.General SurgeryBB:[id number]: 02/18/2017 17:28:11T: 02/19/2017 02:22:30Job #: [id number] [facility] PLAN OF [facility] 02-18-2017 PLAN OF CARE HNO ID: [id number] thor: Emmy Chen (Passenger Service Supervisor)Service: (none)Author Type: TechnicianType: Plan of CareFiled: 02/18/2017 5:43 PMNote Text:PHARMACY BEDSIDE DELIVERY SERVICEPatient Name: Christoph Matias Nitish: [id number] marked outpatient medications were Filled at: [place] and delivered tothe patient's bedside to patientMedication ListSTART taking these medicationsx HYDROcodone-acetaminophen 5-325 mg per tabletCommonly known as: NORCOTake 1 tablet by mouth every 6 hours as needed for up to 5 days.CONTINUE taking these medications FLOMAX 0.4 mg [id number] drug: tamsulosin ER pravastatin 20 mg tabletCommonly known as: Butch Chen (Passenger Service Supervisor)PAGER: Elenita 2016 5:43 PM [facility] PLAN OF CARE HNO ID: [id number] thor: Emmy Chen ([place])Service: (none)Author Type: TechnicianType: Plan of CareFiled: 02/18/2017 2:13 PMNote Text:Pharmacy Discharge Medication Service:This [facility]. Theprescriptions are currently being processed. A follow-up note will beentered once the prescriptions have been filled and delivered to thepatient. Please contact me with any questions or updates to the patient'sdischarge medications.Emmy Chen ([place])DCT Contact Info: [facility] PLAN OF CARE HNO ID: [id number] thor: Emmy Chen ([place])Service: (none)Author Type: TechnicianType: Plan of CareFiled: 02/18/2017 2:13 PMNote Text:SUPERVISOR COLD ROLLING BEDSIDE DELIVERY SURVEY1. Patient to use [facility] Bedside Delivery - YES2. If fax, patient would like us to fax prescriptions to [facility] a. Pharmacy: b. Location: c. Phone:3. Insurance card on file - YES4. Credit card for payment - YES [facility] PT EDon 02-18-2017 PT ED HNO ID: [id number] thor: JOSIE Leach Rnervice: NursingAuthor Type: Registered NurseType: Patient EducationFiled: 02/18/2017 2:40 PMNote Text:POST OP LEARNING RESPONSEINSTRUCTION PROVIDED TO: Patient and family memberMETHOD OF INSTRUCTION: Written instruction - handoutsVerbal instructionPATIENT / FAMILY RESPONSE: Verbalizes understanding of: [id number] orrect actions to take to reduce postoperative complicationsFOLLOW-UP PLAN: Complete - No need for follow-upSUPPLEMENTAL MATERIAL: NoneREFERRAL (RECOMMENDATION): NoneElectronically Signed By: Gisselle Hunt RN In Department: [facility] PT ED HNO ID: [id number] thor: Ruthie Nieves RNService: NursingAuthor Type: Registered NurseType: Patient EducationFiled: 02/18/2017 11:01 AMNote Text:PRE OP LEARNING ASSESSMENTPROCEDURE/SURGERY: SURGERY: Umbilical/ Inguinal HerniaREADINESS TO LEARNCOGNITIVE ABILITY: Alert and orientedMOTIVATION TO LEARN: EagerInterestedFAMILY SUPPORT: High - Very involved in pt carePATIENT LEARNS BEST BY: Individual InstructionWritten Instruction - Hand-outsVerbal InstructionFACTORS AFFECTING LEARNING: NonePHYSICAL LIMITATIONS AFFECTING LEARNING: NoneElectronically Signed By: Ruthie Nieves RN [facility] NURSING PROGon 02-17-2017 Protein mass conc HNO ID: [id number] thor: Elysia (Rn) JOSIE Armstrongervice: General SurgeryAuthor Type: Registered NurseType: Nursing Progress NoteFiled: 02/17/2017 9:40 AMNote Text:PATIENT PREOPERATIVE INSTRUCTIONSNo ref. provider found has scheduled you for your procedure at [facility]: [phone] --[address] [place] [address].Please enter through the entrance closest to Arturo Pickering.Please read below carefully for your personalized instructions.Blood Thinning Medications:- Stop NSAIDS (Ibuprofen, Advil, Aleve, Motrin, Celebrex, Mobic, etc.) 7days before surgery, as directed by your surgeon.- You may take Tylenol (Acetaminophen) or any of your pain medicationsthat do not contain aspirin or NSAIDS as needed.Dietary Restrictions:- No solid food after midnight.- You may have 12 ounces of clear liquids (water, clear juices such asapple juice or gatorade, carbonated beverages, clear tea, black coffee,jello) until 2 hours before scheduled arrival at facility.Pain Medications:Medications:Appr aly medications to take the morning of surgery with a sip of water:None.If you start any new medications after today's visit, please contact [facility] above.Important Reminders:- Candy, mints, gum and tobacco products are NOT permitted the morning ofsurgery.- Hearing aids, dentures and glasses may be worn the morning of surgery.- NO jewelry, body piercings, makeup, nail indonesian, hairpins or contactsare to be worn the day of surgery.If you develop symptoms such as a fever, cold, or flu, or have otherchanges to your health within TWO DAYS of scheduled surgery or the morningof surgery, please contact the surgery center above.Personal Belongings:- Leave ALL valuables and money at home or with family members.For Outpatient Procedures: - YOU MUST HAVE A RESPONSIBLE SANITATION SUPERVISOR TAKE YOU HOME. A PLATE GRAINER APPRENTICE OR CABDRIVER CANNOT BE MADE A RESPONSIBLE SANITATION SUPERVISOR.- We recommend that a responsible person stays with you overnight to takecare of you.- You cannot stay in a hotel alone after outpatient surgery. You will notbe permitted to have your surgery, if you do not have someone to take careof you. Arrival Time for Surgery:- The Surgery Center or hospital where you are having surgery will callthe afternoon before surgery (or Tuesday for Tuesday surgery) with ascheduled arrival time.- If you have not heard by 4 pm, please contact the surgery center above.Please be aware that emergency situations arise, which may delay or changeyour surgical time. If this happens, we will notify you as soon aspossible and regret any inconvenience.Elysia Armstrong RN [facility] NURSING PROGon 02-15-2017 Protein mass conc HNO ID: [id number] thor: Elysia (Rn) Nathaniel, RNService: General SurgeryAuthor Type: Registered NurseType: Nursing Progress NoteFiled: 02/15/2017 2:00 PMNote Text:PACC Nurse Progress NoteHistory AND Physical:PACC Visit Date: N/AOriginal HANDP Date: N/AED visit Date: N/AOutside HANDP Scanned Date: Dr. Stock on 02-07-17, scanned in [facility] [id number] Within Last 6 Months:N/AImaging Within Last 12 Months:N/ACardiac Testing:N/ALast Menstrual Period:LMP Date: N/APostmenopausal >1yr: N/A,S/P Hysterectomy: N/ABMI Percentile (PEDS):N/ARisk Assessment:Medical Date: Dr. Stock, office note scanned in [facility] 78-83-41Adcgawtrcm Review:N/ANarrative:N/APre-o p Considerations:N/AChart Check:Linda Martinmb2016 1:58 PM [facility] NURSING PROGon 01-25-2017 Protein mass conc HNO ID: [id number] Author: Radha (Rn) Fran, RN Service: (none) Author Type: Registered Nurse Type: Nursing Progress Note Filed: 01/25/2017 11:43 AM Note Text: Guidelines faxed to Dr Stock at [phone]. Radha Peters RN [facility] CNOVon 08-24-2016 CNOV Office Visit (GENSAV) ----CHRISTOPH GARCIA ([id number]) 1960 MDate Time Provider Department08/24/16 8:45 AM MAZIN QUIÑONEZ During your visit today, we recorded the following information about you:Referring Provider: GENE STOCK [[id number]]Allergies As of Date: 08/24/2016 Noted Allergy ReactionERTHROMYCIN (ERYTHROMYCIN) 08/24/2016 4 - HivesDate Reviewed: 08/24/2016Reviewed by: Kaylin Montague Ma - Fully AssessedReason for Visit: Consult [173] Cmt: L inguinal herniaPrimary Visit Diagnosis:Non-recurrent unilateral inguinal hernia without obstruction or gangrene [K40.90] Other Visit Diagnosis:Umbilical hernia without obstruction and without gangrene [K42.9]Prescriptions as of 08/24/2016 Sig: TAMSULOSIN 0.4 MG CAPSULE Take 0.4 mg by mouth. PRAVASTATIN 20 MG TABLET Take 20 mg by mouth once araseli*Problem List As Of Date: 08/24/2016(None) Status:Closed by MAZIN QUIÑONEZ MD on 08/24/16 [facility] PROGRESSon 08-24-2016 PROGRESS HNO ID: [id number] thor: Mazin Mcgrathervice: General SurgeryAuthor Type: PhysicianType: Progress NotesFiled: 08/24/2016 5:08 PMNote Text:[facility] [place] [facility] General SurgeryMazin Quiñonez M.D., FFadiaS.Arturo Carrasquillo [facility].[place], [place] [address]Qajqd: [phone]: [phone]: CHRISTOPH GARCIA [facility] NO: [id number] OF SERVICE: 08/24/2016[facility] PRES[facility] ILLNESS: This is a very healthy, 55[place]year[place] with [place] , 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 He had lost 40 pounds voluntarily and worked through a salesforce trainer this past year or two. He has been having some symptoms ofdiscomfort in the left groin for about two months. Most recently had asevere episode of left groin pain, which radiated across the lowerabdomen, very intense pain. No changes in bowel or bladder habits. Epicrecords were verified, confirmed and updated. He has been on Flomax andPravachol. No changes in bowel or bladder habits.PHYSICAL EXAMINATION: Examination confirms a small left inguinal hernia, which is somewhat sensitive but easily self-reducing. He also has asmall umbilical hernia. No right inguinal hernia. No organomegaly orlymphadenopathy or other masses were identified.PLAN: A lengthy discussion was held regarding the benefits, risks,alternatives, no guarantees of the eventual outcome and personnel. Heunderstands, agrees and wishes to proceed with left inguinal herniarepair, anterior repair with mesh and umbilical hernia repair with mesh.Will call to schedule.MAZIN QUIÑONEZ M.D.BB/102Audio #: [id number]: Gene Stock M.D. [address] [place], [place] [address]Nhoa Dictated: 08/24/2016 09:45:14Date Typed: 08/24/2016 14:44:35Date Revised: Normal [facility] Vital Signs Date Time Vital Sign Value Performing Clinician Facility 10-10-2023 10:50-0400 Body height 180.34 cm [facility] 10-10-2023 10:50-0400 Body mass index (BMI) [Ratio] 26.1 kg/m2 [facility] 10-10-2023 10:50-0400 Body weight 84.93 kg [facility] 10-10-2023 10:50-0400 Diastolic blood pressure 75 mm[Hg] [facility] 10-10-2023 10:50-0400 Heart rate 60 /min [facility] 10-10-2023 10:50-0400 Respiratory rate 12 /min [facility] 10-10-2023 10:50-0400 Systolic blood pressure 120 mm[Hg] [facility] 08-16-2023 09:10-0400 Body height 180.34 cm [facility] 08-16-2023 09:10-0400 Body mass index (BMI) [Ratio] 25.4 kg/m2 [facility] 08-16-2023 09:10-0400 Body weight 82.78 kg [facility] 08-16-2023 09:10-0400 Diastolic blood pressure 73 mm[Hg] [facility] 08-16-2023 09:10-0400 Heart rate 57 /min [facility] 08-16-2023 09:10-0400 Respiratory rate 12 /min [facility] 08-16-2023 09:10-0400 Systolic blood pressure 113 mm[Hg] [facility] 06-01-2023 15:30-0400 Body height 180.34 cm [facility] 06-01-2023 15:30-0400 Body mass index (BMI) [Ratio] 24.8 kg/m2 [facility] 06-01-2023 15:30-0400 Body weight 80.73 kg [facility] 06-01-2023 15:30-0400 Diastolic blood pressure 79 mm[Hg] [facility] 06-01-2023 15:30-0400 Heart rate 63 /min [facility] 06-01-2023 15:30-0400 Respiratory rate 12 /min [facility] 06-01-2023 15:30-0400 Systolic blood pressure 128 mm[Hg] [facility] 02-02-2023 09:00-0500 Body height 180.34 cm [facility] Other [facility] 02-02-2023 09:00-0500 Body mass index (BMI) [Ratio] 26.25 kg/m2 [facility] Other [facility] 02-02-2023 09:00-0500 Body weight 85.37 kg [facility] Other [facility] Other 02-02-2023 09:00-0500 Diastolic blood pressure 90 mm[Hg] [facility] Other [facility] Other 02-02-2023 09:00-0500 Respiratory rate 12 /min [facility] Other [facility] Other 02-02-2023 09:00-0500 Systolic blood pressure 140 mm[Hg] [facility] Other [facility] Other 08-03-2022 10:30-0400 Body height 180.34 cm [facility] Other [facility] Other 08-03-2022 10:30-0400 Body mass index (BMI) [Ratio] 27.58 kg/m2 [facility] Other [facility] Other 08-03-2022 10:30-0400 Body weight 89.72 kg [facility] Ball Other [facility] Other 08-03-2022 10:30-0400 Diastolic blood pressure 81 mm[Hg] [facility] Other [facility] Other 08-03-2022 10:30-0400 Respiratory rate 12 /min [facility] Other [facility] Other 08-03-2022 10:30-0400 Systolic blood pressure 167 mm[Hg] [facility] Other [facility] Other 08-03-2022 09:30-0400 Body height 180.34 cm [facility] Other [facility] Other 08-03-2022 09:30-0400 Body mass index (BMI) [Ratio] 27.58 kg/m2 [facility] Other [facility] Other 08-03-2022 09:30-0400 Body weight 89.72 kg [facility] Other [facility] Other 08-03-2022 09:30-0400 Diastolic blood pressure 81 mm[Hg] [facility] Other [facility] Other 08-03-2022 09:30-0400 Respiratory rate 12 /min [facility] Other [facility] Other 08-03-2022 09:30-0400 Systolic blood pressure 167 mm[Hg] [facility] Ball Other [facility] Other Encounters Encounter Date Encounter Type Care Provider Facility Start: 10-10-2023 End: 10-10-2023 ambulatory [facility] Work Phone: Start: 10-10-2023 End: 10-10-2023 Patient encounter procedure [facility] Work Phone: Start: 08-16-2023 End: 08-16-2023 ambulatory [facility] Work Phone: Start: 08-16-2023 End: 08-16-2023 Encounter for general adult medical examination without abnormal findings [facility] Start: 08-16-2023 End: 08-16-2023 Patient encounter procedure [facility] Work Phone: Start: 06-01-2023 End: 06-01-2023 ambulatory [facility] Work Phone: Start: 06-01-2023 End: 06-01-2023 Patient encounter procedure [facility] Work Phone: Start: 05-12-2023 Non-patient / Non-visit [facility] Work Phone: Start: 02-02-2023 End: 02-02-2023 ambulatory [facility] N[facility] Other [facility] Other Start: 02-02-2023 Office outpatient vi sit 25 minutes Kobe Nj [facility] Start: 08-23-2022 End: 08-23-2022 ambulatory [facility] Nj Other [facility] Other Start: 08-23-2022 Telephone encounter [facility]obe [facility] Start: 08-11-2022 End: 08-11-2022 ambulatory [facility] Nj Other [facility] Other Start: 08-11-2022 Telephone encounter [facility]obe [facility] Start: 08-03-2022 End: 08-03-2022 ambulatory [facility]obe Nj Other [facility] Other Start: 08-03-2022 Encounter for genera l adult medical examination without abnormal findings Kobe Nj [facility] Start: 08-03-2022 Periodic preventive med est patient 40-64yrs Kobe Nj [facility] Start: 08-18-2021 Encounter for genera l adult medical examination without abnormal findings DR KOBE [facility] Start: 08-14-2021 End: 08-15-[address] KOBE [place] Facility:[facility] Start: 08-14-2021 End: 08-15-2021 Encounter for general adult medical examination without abnormal findings DR KOBE [place] Facility:[facility] Start: 10-02-2020 End: 10-03-[address] KOBE [place] Facility:[facility] Start: 03-08-2017 End: 03-08-2017 Ambulatory MAZIN [facility] Start: 02-18-2017 End: 02-18-2017 Patient encounter MAZIN QUIÑONEZ [facility] Start: 08-24-2016 End: 08-24-2016 Ambulatory MAZIN [facility] OLAMIDE [facility] Procedures Date Procedure Procedure Detail Performing Clinician Start: 08-14-[address] ROSENDA [place] Comment on above: Performed By: #### P SASC #### [facility] [address], [place] [address] Dr. Ridge Conklin Start: 10-02-[address] ROSENDA [place] Comment on above: Performed By: #### P SASC #### [facility] [address], [place] [address] Gabi Boyer Plan of Treatment Date Care Activity Detail Author Comprehensive metabo lic 2000 panel - Serum or Plasma [facility] Payers Date Payer Category Payer Unknown [id number] [id number] [id number] 1960 Unknown [id number] 1960 Unknown [id number] Unknown MMO [id number] Social History Date Type Detail Facility Sex Assigned At [facility] Other Start: 1960 Sex Assigned At Male F [facility] Evaluation note 02-02-2023 Note Date & Type Note Facility 02-02-2023 Evaluation note Encounter Date Diagnosis Assessment Notes Jan, Pure hypercholesterolemia (ICD-10 - E78.00) Instructed on diet and exercise with continued statin therapy.Discusse d the beneficial effects of lowering cholesterol in reducing the risk for cerebrovascular and cardiovascular disease. Jan, Elevated BP without diagnosis of hypertension (ICD-10 - R03.0) This patient is instructed to consume a healthy, low-fat, low-salt diet. They are also encouraged to continue exercise to achieve/maintain a normal BMI. Patient is instructed on home BP measurements: - rest for 5 minutes w/o talking- positioned w/ feet on floor and arm supported- average best 2/3 readings w/ goal < 135/85 _update office next week Jan, Chronic venous insufficiency (ICD-10 - I87.2) Avoid salt and elevate lower extremities, support stockings, inspect legs and feet daily for blisters and ulcerations. He denies any blisters or ulcerations requiring treatment Jan, Benign prostatic hyperplasia with lower urinary tract symptoms (ICD-10 - N40.1) Symptoms tolerable w/ treatment. Yearly FLOR and PSA - must double PSA value due to use of Finasteride Jan, Nocturia (ICD-10 - R35.1) Jan, Overweight (ICD-10 - E66.3) This patient has been instructed on a low-fat, high-fiber diet. They are instructed to reduce calories, portion sizes and snacks. It is recommended that they exercise for 30 minutes, 3-5 times weekly. Restarted exercise routine [facility] Other Evaluation note 08-03-2022 Note Date & Type Note Facility 08-03-2022 Evaluation note Encounter Date Diagnosis Assessment Notes Jul, Wellness examination (ICD-10 - Z00.00) Healthy diet and exercise. Reviewed age-appropriate preventive testing recommended. Jul, Pure hypercholesterolemia (ICD-10 - E78.00) Instructed on diet and exercise with continued statin therapy.Discusse d the beneficial effects of lowering cholesterol in reducing the risk for cerebrovascular and cardiovascular disease. Jul, Elevated BP without diagnosis of hypertension (ICD-10 - R03.0) This patient is instructed to consume a healthy, low-fat, low-salt diet. They are also encouraged to continue exercise to achieve/maintain a normal BMI. Goal < 140/90 Patient is instructed on home BP measurements: - rest for 5 minutes w/o talking- positioned w/ feet on floor and arm supported- average best 2/3 readings w/ goal < 135-85 Jul, Nocturia (ICD-10 - R35.1) Jul, Benign prostatic hyperplasia with lower urinary tract symptoms (ICD-10 - N40.1) Symptoms tolerable, continue Finasteride PSA yearly Jul, Chronic venous insufficiency (ICD-10 - I87.2) Avoid salt and elevate lower extremities, support stockings, inspect legs and feet daily for blisters and ulcerations. Jul, Overweight (ICD-10 - E66.3) This patient has been instructed on a low-fat, high-fiber diet. They are instructed to reduce calories, portion sizes and snacks. It is recommended that they exercise for 30 minutes, 3-5 times weekly. Jul, Screening PSA (prostate specific antigen) (ICD-10 - Z12.5) [facility] Other Evaluation note Note Date & Type Note Facility Evaluation note No Information [facility] Other Evaluation note Note Date & Type Note Facility Evaluation note Diagnosis Onset Date Chronic venous insufficiency of lower extremity acute Elevated cholesterol acute Primary hypertension acute [facility] Work Phone: Evaluation note Note Date & Type Note Facility Evaluation note Diagnosis Onset Date Elevated cholesterol acute Primary hypertension acute Benign prostatic hyperplasia with lower urinary tract symptoms acute Chronic venous insufficiency acute Elevated cholesterol acute Gastroesophageal reflux dise ase with esophagitis without hemorrhage acute GERD (gastroesophageal reflux disease) acute Primary hypertension acute Screening for colon cancer a cute Screening PSA (prostate specific antigen) noneactive Wellness examination noneact [facility] Work Phone: Evaluation note Note Date & Type Note Facility Evaluation note Diagnosis Onset Date Benign prostatic hyperplasia with lower urinary tract symptoms acute Chronic venous insufficiency acute Elevated cholesterol acute Gastroesophageal reflux dise ase with esophagitis without hemorrhage acute GERD (gastroesophageal reflux disease) acute Primary hypertension acute Screening for colon cancer a cute Screening PSA (prostate specific antigen) noneactive Wellness examination noneact [facility] Work Phone: History general Narrative - Reported Note Date & Type Note Facility History general Narrative - Reported Type Medical History Primary hypertension Medical History Pure hypercholesterolemia Medical History Gastroesophageal ref lux disease with esophagitis without hemorrhage Medical History Benign prostatic hyp erplasia with lower urinary tract symptoms Medical History Chronic venous insufficiency Surgical History REPAIR,HERNIA, UMBILICAL 2017 Surgical History APPENDECTOMY 1979 Hospitalization History SEE SURGICAL HX [facility] Other History general Narrative - Reported Note Date & Type Note Facility History general Narrative - Reported [facility] Other History general Narrative - Reported Note Date & Type Note Facility History general Narrative - Reported [facility] Other Summary Purpose Family History No Family History Records FoundNo Family History Records FoundNo Family History Records Found Advance Directives Advance Directive Response Recorded Date/ Time Advance Directives No March 24, 2023 12:32pm Procedure Findings Note HNO ID: [id number]: Cassi Mcgrathervice: General SurgeryAuthor Type: PhysicianType: Brief Op NoteFiled: 02/18/2017 3:03 PMNote Text:BRIEF OPERATIVE / PROCEDURE NOTELOG ID: [id number]/Procedure Date: 02/18/2017Incision/Procedure Start Time: 12:28 PMIncision Close/Procedure End Time: 1:08 PMSurgeon(s)/Proceduralist(s) and Space Physicist(s):Surgeon(s) and Role: * Mazin Quiñonez - PrimaryPhysician Space Physicist: Doty (Pa) HancharickProcedure(s): repair with mesh direct left inguinal and umbilical herniasAnesthesia: GeneralFindings: same, large directEstimated Blood Loss: 0 mlSpecimens: NoneComplications: NonePre-Op/Pre-Procedure Diagnosis: left and umbilical herniasPost-Op/Post-Procedure Diagnosis: Umbilical hernia [K42.9]Inguinal hernia[K40.90] , directSIGNATURE: Mazni Quiñonez MD PATIENT NAME: Christoph GarciaDATE: February 18, 2017 : 3:01 PM PAGER/CONTACT #: Chief Complaint and Reason for Visit Chief Complaint Amb Documentation BP recheck Reason for Visit Chronic venous insuf ficiency of lower extremity Elevated cholesterol Primary hypertension Chief Complaint BP recheck Wellness Reason for Visit Elevated cholesterol Primary hypertension Benign prostatic hyperplasia with lower urinary tract symptoms Chronic venous insufficiency Elevated cholesterol Gastroesophageal reflux disease with esophagitis without hemorrhage GERD (gastroesophageal reflux disease) Primary hypertension Screening for colon cancer Screening PSA (prostate specific antigen) Wellness examination Chief Complaint Wellness tick bite - groin area Reason for Visit Benign prostatic hyp erplasia with lower urinary tract symptoms Chronic venous insufficiency Elevated cholesterol Gastroesophageal reflux disease with esophagitis without hemorrhage GERD (gastroesophageal reflux disease) Primary hypertension Screening for colon cancer Screening PSA (prostate specific antigen) Wellness examination Additional Source Comments (unrecognized sect ion and content) No Status Records FoundNo Status Records FoundNo Status Records Found INFORMATION SOURCE (unrecogn ized section and content) DATE CREATED AUTHOR 08/23/2017 [facility] DATE CREATED AUTHOR AUTHOR'S ORGANIZ ATION 12/29/2017 [facility] DATE CREATED AUTHOR AUTHOR'S ORGANIZ ATION 08/19/2021 [facility] REASON FOR VISIT (unrecogniz ed section and content) 6 MONTH FOLLOW UPLab Results 6 month Follow up6 MONTH FOLLOW UP Care Teams (unrecognized sec tion and content) Team Status: Active Member Role Status Dates Kobe Nj , Primary Care Provider Active Team Status: Inactive Member Role Status Dates Kobe Nj , DO Primary Care Provide r, Attending Provider Active Start: June 01, 2023 End: June 01, 2023 Team Status: Inactive Member Role Status Dates Kobe Nj , Primary Care Provide r, Attending Provider Active Start: August 16, 2023 End: August 16, 2023 Team Status: Active Member Role Status Dates Kobe Nj , Primary Care Provider Active Start: May 12, 2023 ERYN Oshea Attending Provider Active Start : May 12, 2023 Team Status: Inactive Member Role Status Dates Kobe Nj DO Primary Care Provide r, Attending Provider Active Start: October 10, 2023 End: October 10, 2023 Goals (unrecognized section and content) Goals may be documented in a n alternate section FOR RECORDS PERTAINING TO PATIENTS WHO ARE OR HAVE BEEN ENROLLED IN A CHEMICAL DEPENDENCY/SUBSTANCEABUSE PROGRAM, SOME INFORMATION MAY BE OMITTED. This clinical summary was aggregated from multiple sources. Caution should be exercised in using it in the provision of clinical care. This summary normalizes information from multiple sources, and as a consequence, information in this document may materially change the coding, format and clinical context of patient data. In addition, data may be omitted in some cases. CLINICAL DECISIONS SHOULD BE BASED ON THE PRIMARY CLINICAL RECORDS. [facility]. provides no warranty or guarantee of the accuracy or completeness of information in this document.
[2023-11-17 11:28] LABS: Eosinophils Absolute Auto 0.2 10^3/uL (0.0-0.7); Eosinophils Percent Auto 3.8 % (0.9-7.0); Hematocrit 46.5 % (42.0-54.0); Immature Granulocytes Abs Auto 0.01 10^3/uL (0.00-0.03); Immature Granulocytes Pct Auto 0.3 % (0.0-0.5); Lymphocytes Absolute Auto 1.2 10^3/uL (1.2-3.8); Lymphocytes Percent Auto 29.9 % (20.5-60.0); Mean Corpuscular HGB Conc 32.3 g/dL (29.9-35.2); Mean Corpuscular Hemoglobin 28.4 pg (25.9-34.0); Mean Corpuscular Volume 88.1 fL (80.0-94.0); Monocytes Absolute Auto 0.4 10^3/uL (0.3-0.8); Monocytes Percent Auto 10.8 % (1.7-12.0); Neutrophils Absolute Auto 2.2 10^3/uL (1.4-6.5); Neutrophils Percent Auto 54.2 % (43.0-75.0); Platelet Count 186 10^3/uL (150-450); Red Blood Count 5.28 10^6/uL (4.70-6.10); Red Cell Distribution Width 12.4 % (11.0-15.0)
[2023-11-17 11:55] LABS: Albumin Level 3.9 g/dL (3.4-5.0); Calcium 8.8 mg/dL (8.5-10.1)
[2023-11-21 05:06] LABS: Lead, Blood (Adult) 9.4 ug/dL (0.0-3.4)
== END 2023-11-17 11:04 | disposition home or self-care (01) ==
LOC: LAB 11:05
PROVIDERS: PCP Internal Medicine; Visit Provider Internal Medicine
DX: E83.51 Hypocalcemia (principal); D72.819 Decreased white blood cell count, unspecified; R78.71 Abnormal lead level in blood
CPT/HCPCS: 36415; 82042; 82310; 83655; 85025

== ENCOUNTER 2024-03-07 07:55 | Outpatient (OUT) | payer OTHER, SELFPAY ==
[2024-03-09 13:07] LABS: Lead, Blood (Adult) 6.6 ug/dL (0.0-3.4)
== END 2024-03-07 07:56 | disposition home or self-care (01) ==
LOC: LAB 07:57
PROVIDERS: PCP Internal Medicine; Visit Provider Internal Medicine
DX: T56.0X1A 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, accidental (unintentional), initial encounter (principal)
CPT/HCPCS: 36415; 83655

== ENCOUNTER 2024-08-06 08:42 | Outpatient (OUT) | payer OTHER, SELFPAY ==
--- OUTSIDE RECORDS SUMMARY | 2024-08-06 08:49 | XMS_ITS | Clinical Summary ---
Author Organization [facility] tem Address [id number] [address] [place] [address] Care Team Providers Care Fur Blowing Machine Attendant Name Role Phone ClemKobe Primary Care Provider [phone] Allergies Active Allergy Reactions Criticality Noted Date Comments Erythromycin Hives,Rash High 08/24/2016 Medications finasteride (PROSCAR) 5 mg tablet Take 1 tablet (5 mg total) by mouth in the morning. Active pravastatin (PRAVACHOL) 20 mg tablet Take 1 tablet (20 mg total) by mouth in the morning. Active tamsulosin (FLOMAX) 0.4 mg capsule Take 1 capsule (0.4 mg total) by mouth nightly. Active losartan (COZAAR) 25 mg tablet Take 1 tablet (25 mg total) by mouth in the morning. Active amLODIPine (NORVASC) 5 mg tablet Take 1 tablet (5 mg total) by mouth in the morning. Active Active Problems No known active problems Encounters Date Type Department Care Team Description 06/11/2024 9:15 AM EDT - 06/11/2024 9:45 AM EDT Surgery [facility] - Surgery [address] [place] [id number] Steven Stoddard DO COLONOSCOPY DIAGNOSTIC / SCREENING [30383 (CPT )] 06/11/2024 8:46 AM EDT Anesthesia Event [facility] - Surgery [address] [place] [address] Ulises Paz DO 06/11/2024 7:10 AM EDT - 06/11/2024 9:34 AM EDT Hospital Encounter [facility] - Surgery [address] [place] [phone] Steven Stoddard DO Screening for cancer (Primary Dx) Discharge Disposition: Home 06/11/2024 Travel 05/17/2024 11:00 AM EDT Office Visit [facility] General Surgery [address] [place] [id number] 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, 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 Encounter for screening colonoscopy (Primary Dx) 05/17/2024 Travel from Last 3 Months Social History Tobacco Use Types Packs/Day Years Used Date Smoking Tobacco: Never Smokeless Tobacco: Never Tobacco Cessation:Counseling Given: Not Answered Alcohol Use Standard Drinks/Week Comments Not Currently 0 (1 standard drink = 0.6 oz pur e alcohol) Childcare Answer Date Recorded Childcare Unknown 08/09/2018 Employment Answer Date Recorded Employment Unknown 08/09/2018 Purpose - Life Answer Date Recorded Purpose and direction in life Unknown Sex and Gender Information Value Date Recorded Sex Assigned at Not on file Legal Sex Male 11:28 AM EDT Gender Identity Not on file Sexual Orientation Not on file Last Filed Vital Signs Vital Sign Reading Time Taken Comments Blood Pressure 142/83 06/11/2024 9:16 AM EDT Pulse 54 06/11/2024 9:16 AM EDT Temperature 36.8 C (98.3 F) 06/11/2024 7:23 AM EDT Respiratory Rate 20 06/11/2024 9:16 AM EDT Oxygen Saturation 98% 06/11/2024 9:16 AM EDT Inhaled Oxygen Concentration - - Weight 83.9 kg (185 lb) 06/11/2024 7:23 AM EDT Height 177.8 cm (5' 10 ) 06/11/2024 7:23 AM EDT Body Mass Index 26.54 06/11/2024 7:23 AM EDT Plan of Treatment Health Maintenance Due Date Last Done Comments Depression Screening 1971 Adult BMI Follow Up Plan 11/23/1977 DTaP,Tdap and Td Vaccines (1 - Tdap) 11/23/1978 Zoster (Shingles) Vaccine (1 of 2) 11/23/2009 Influenza Vaccine 10/29/2024 Adult BMI Screening 06/11/2025 06/11/2024 Tobacco Screening 06/11/2025 06/11/2024 Colonoscopy 06/11/2034 06/11/2024, 06/11/2024 Medical Devices Not on file Procedures Procedure Name Priority Date/Time Associated Diagnosis Comments [place] COLONOSCOPY FLX DX W/COLLJ SPEC WHEN PFRMD 06/11/2024 8:47 AM EDT Screen for colon cancer COLONOSCOPY 06/11/2024 8:38 AM EDT PROVATION COLONOSCOPY Routine 06/11/2024 7:11 AM EDT from Last 3 Months Results * Colonoscopy (06/11/2024 8:38 AM EDT) 06/11/2024 8:38 AM EDT Narrative PM CARDIOVASCULAR - 06/11/2024 9:00 AM EDT [facility] Patient Name: Christoph Garcia Procedure Date No Time: 06/11/2024 CSN : [id number] Date of : 1960 Admit Type: Outpatient Age: 63 Room: [place] [address] Gender: Male Note Status: Finalized Attending MD: Steven Stoddard DO, Procedure: Colonoscopy Indications: Screening for colorectal malignant neoplasm Providers: Steven Stoddard DO Referring MD: Steven Stoddard DO Medicines: Propofol per Anesthesia Complications: No immediate complications. Procedure: After I obtained informed consent, the scope was passed under direct vision. Throughout the procedure, the patient's blood pressure, pulse, and oxygen saturations were monitored continuously. The [facility] [id number] #[id number] ADULT COLONOSCOPE was introduced through the anus and advanced to the cecum, identified by appendiceal orifice and ileocecal valve. The colonoscopy was performed without difficulty. The patient tolerated the procedure well. The quality of the bowel preparation was excellent. Findings: The perianal and digital rectal examinations were normal. The colon (entire examined portion) appeared normal. The exam was otherwise without abnormality on direct and retroflexion views. Estimated Blood Loss: Estimated blood loss: none. Impression: - The entire examined colon is normal. - The examination was otherwise normal on direct and retroflexion views. - No specimens collected. Recommendation: - Discharge patient to home. - Patient has a contact number available for emergencies. The signs and symptoms of potential delayed complications were discussed with the patient. Return to normal activities tomorrow. Written discharge instructions were provided to the patient. - Repeat colonoscopy in 10 years for screening purposes. - Return to my office PRN. Procedure Code(s): --- Professional --- G0121, Colorectal cancer screening; colonoscopy on individual not meeting criteria for high risk Diagnosis Code(s): --- Professional --- Z12.11, Encounter for screening for malignant neoplasm of colon CPT copyright 2022 [employer]. All rights reserved. The codes documented in this report are preliminary and upon automotive parts counterperson review may be revised to meet current compliance requirements. DO Steven Watson DO 06/11/2024 9:00:25 AM Number of Addenda: 0 Note Initiated On: 06/11/2024 8:38 AM Procedure Note Steven Stoddard DO - 06/11/2024 [facility] Patient Name: Christoph Garcia Procedure Date No Time: 06/11/2024 CSN : [id number] Date of : 1960 Admit Type: Outpatient Age: 63 Room: [place] [address] Gender: Male Note Status: Finalized Attending MD: Steven Stoddard DO, Procedure: Colonoscopy Indications: Screening for colorectal malignant neoplasm Providers: Steven Stoddard DO Referring MD: Steven Stoddard DO Medicines: Propofol per Anesthesia Complications: No immediate complications. Procedure: After I obtained informed consent, the scope was passed under direct vision. Throughout theprocedure, the patient's blood pressure, pulse, and oxygen saturations were monitored continuously. [facility] [id number] #[id number] ADULT COLONOSCOPE was introduced through the anus and advanced to the cecum,identified by appendiceal orifice and ileocecal valve. The colonoscopy was performed without difficulty. The patient tolerated the procedure well. The qualityof the bowel preparation was excellent. Findings: The perianal and digital rectal examinations were normal. The colon (entire examined portion) appeared normal. The exam was otherwise without abnormality on direct and retroflexion views. Estimated Blood Loss: Estimated blood loss: none. Impression: - The entire examined colon is normal. - The examination was otherwise normal on directand retroflexion views. - No specimens collected. Recommendation: - Discharge patient to home. - Patient has a contact number available for emergencies. The signs and symptoms of potential delayed complications were discussed with thepatient. Return to normal activities tomorrow. Written discharge instructions were provided to thepatient. - Repeat colonoscopy in 10 years for screening purposes. - Return to my office PRN. Procedure Code(s): --- Professional --- G0121, Colorectal cancer screening; colonoscopy on individual not meeting criteria for high risk Diagnosis Code(s): --- Professional --- Z12.11, Encounter for screening for malignant neoplasm of colon CPT copyright 2022 [employer]. All rights reserved. The codes documented in this report are preliminary and upon automotive parts counterperson reviewmay be revised to meet current compliance requirements. DO Steven Watson DO 06/11/2024 9:00:25 AM Number of Addenda: 0 Note Initiated On: 06/11/2024 8:38 AM Steven Stoddard DO GI PROCEDURE ORDERABLES Fin al Result PM CARDIOVASCULAR * Colonoscopy Report (06/11/2024 7:11 AM EDT) Narrative SYSTEMGENERATED, DOCUMENTATION - 06/11/2024 7:11 AM EDT This order has been auto-finalized for image and report archival in PACs. *For full report details, please reach out to your physician. This image is visible to you in MyChart.* us Steven Stoddard DO IMG OR IMG ORDERABLES Final Result from Last 3 Months Insurance [employer] Care Teams Fur Blowing Machine Attendant Relationship Specialty Start Date End Date Kobe Nj DO [address] [facility] [place] [address] PCP - General Internal Medicine 04/30/24
--- OUTSIDE RECORDS SUMMARY | 2024-08-06 08:49 | XMS_ITS | Clinical Summary ---
Author Organization [facility] Address [address] [facility] [place] [address] Care Team Providers Care Lead Coater Name Role Phone Unavailable Primary Care Provider Unavailabl e Social History Tobacco Use Types Packs/Day Years Used Date Smoking Tobacco: Never Assessed Sex and Gender Information Value Date Recorded Sex Assigned at Not on file Legal Sex Male 7:36 PM EDT Gender Identity Male 05/12/2022 7:36 PM EDT Sexual Orientation Not on file Last Filed Vital Signs Vital Sign Reading Time Taken Comments Blood Pressure 116/60 10/29/2019 12:00 PM EDT Pulse - - Temperature - - Respiratory Rate - - Oxygen Saturation - - Inhaled Oxygen Concentration - - Weight 76.2 kg (168 lb) 10/29/2019 12:00 PM EDT Height 177.8 cm (5' 10 ) 10/29/2019 12:00 PM EDT Body Mass Index 24.11 10/29/2019 12:00 PM EDT Plan of Treatment Not on file
--- OUTSIDE RECORDS SUMMARY | 2024-08-06 08:49 | XMS_ITS | Patient Health Record ---
Author Organization [facility] [employer] Address [address] [place] [address] Care Team Providers Care Harbor Boat Pilot Name Role Phone Kobe Nj DO Primary Care Provider Unavaila ble Allergies Allergen (clinical drug ingredient) Drug/Non Drug Allergy documented on EMR Reaction Allergy Type Onset Date Status erythromycin Erythromycin rash Drug Allergy A ctive Reason For Referral No Information Medications Medication SIG (Take, Route, Frequency, Duration) Notes Start Date End Date Status Tamsulosin HCl 0.4 MG Oral for 90 Days Active Pravastatin Sodium 20 MG Oral for 90 Days Active Finasteride 5 MG Oral for 90 Days Active Social History Tobacco Use: Social History Observation Description Date Details (start date - stop date) Never Smoker NA - NA Tobacco Use/Smoking Question Answer Notes Patient is a nonsmoker Plan Of Treatment No Information Insurance Providers Payer Name Payer Address Payer Phone Subscriber Number Group Number Insured Name Patient Relationship to Insured Coverage Start Date Coverage End Date O [address] [place], [place] [id number] Christoph Garcia Self - patient is the insured Medical (General) History Surgical History Surgery Date(Month/Year) Hernia Hospitalization History Reason Date(Month/Year) hernia repair
--- OUTSIDE RECORDS SUMMARY | 2024-08-06 08:49 | XMS_ITS | Clinical Summary ---
Author Organization [facility] Address [address] [place] [id number] Care Team Providers Care Rehabilitation Program Manager Name Role Phone Veto Stock Primary Care Provider [phone] Allergies Active Allergy Reactions Criticality Noted Date Comments Erythromycin Hives 08/24/2016 Medications tamsulosin ER (FLOMAX) 0.4 mg cp24 Take 0.4 mg by mouth. Active pravastatin (PRAVACHOL) 20 mg tablet Take 20 mg by mouth once daily. Active finasteride (PROSCAR) 5 mg tablet 11/01/2017 Active diclofenac sodium (VOLTAREN) 1 % topical gel Apply 4 g to affected area four times daily. 200 g 1 12/14/2017 Active Active Problems Problem Noted Date Diagnosed Date Inguinal hernia 09/06/2016 Overview (09/06/2016): Added automatically from request for surgery [id number] Umbilical hernia 09/06/2016 Overview (09/06/2016): Added automatically from request for surgery [id number] Family History Medical History Relation Comments Other Father Parkinson's COPD Mother Relation Status Comments Father Mother Social History Tobacco Use Types Packs/Day Years Used Date Smoking Tobacco: Never Smokeless Tobacco: Never Alcohol Use Standard Drinks/Week Comments No 0 (1 standard drink = 0.6 oz pur e alcohol) PHQ-2 Answer Date Recorded PHQ-2 score 0 12/14/2017 Area Deprivation Index Answer Date Pardeep rded National Score (1-100), lower number is lower ri sk Not on file 02/05/2020 State Score (1-10), lower number is lower risk N ot on file 02/05/2020 Data from: https://www.neighborhoodatlas.medicine.[facility]/. Last address used for calculation Not on file 02/05/2020 Sex and Gender Information Value Date Recorded Sex Assigned at Not on file Legal Sex Male 10:04 AM EDT Gender Identity Not on file Sexual Orientation Not on file Last Filed Vital Signs Vital Sign Reading Time Taken Comments Blood Pressure 126/87 12/14/2017 8:42 AM EDT Pulse 62 12/14/2017 8:42 AM EDT Temperature 36.5 C (97.7 F) 02/18/2017 1:33 PM EST Respiratory Rate 16 12/14/2017 8:42 AM EDT Oxygen Saturation 100% 02/18/2017 2:30 PM EST Inhaled Oxygen Concentration - - Weight 79.4 kg (175 lb) 12/14/2017 8:42 AM EDT Height 179.1 cm (5' 10.5 ) 12/14/2017 8:42 AM ED T Body Mass Index 24.75 12/14/2017 8:42 AM EDT Plan of Treatment Health Maintenance Due Date Last Done Comments Anxiety Screening 11/23/1977 Depression Screening 11/23/1977 HIV Screening 11/23/1977 Hepatitis C Screening 11/23/1977 DTaP,Tdap,Td Vaccine (1 - Tdap) 11/23/1978 Lipid Screening 11/23/1994 CT Colonography 11/23/2004 Cologuard (FIT-DNA) 11/23/2004 Colonoscopy 11/23/2004 Colorectal Cancer Screening 11/23/2004 Diabetes Screening 11/23/2004 Fecal Occult Blood 11/23/2004 Prostate Cancer Screening Discussion 11/23/2004 Sigmoidoscopy 11/23/2004 Pneumococcal Vaccine: 50+ (1 of 1 - PCV) 11/23/2009 Shingrix Vaccine (1 of 2) 11/23/2009 Covid-19 Vaccine (1 - season) 2023 Influenza Vaccine (Season Ended) 2024 RSV Vaccine (1 - 1-dose 75+ series) 11/23/2034 Medical Devices Implanted Type Area Family Lawyer Device Identifier Shelf Expiration Date Model / Serial / Lot Mesh Marlex Perfix Xl Polypropylene 2x1.6in Surgical Nonabsorbable Plug - [id number] Implanted: 017 at [facility] (Quantity not on file) Mesh Left: Inguinal [employer] 10/25/2020 [id number] / / [id number] Patch Ventralex St Sepra Sorbaflex 1.7in Small [place] Polypropylene - [id number] Implanted: 017 at [facility] (Quantity not on file) Mesh N/A: Umbilical [employer] 12/25/2017 [id number] / / [id number] [facility] Care Teams Rehabilitation Program Manager Relationship Specialty Start Date End Date Veto Stock PCP - General Family Medicine 08/20/16
[2024-08-07 15:08] LABS: Lead, Blood (Adult) 6.1 ug/dL (0.0-3.4)
== END 2024-08-06 08:43 | disposition home or self-care (01) ==
LOC: LAB 08:46
PROVIDERS: PCP Internal Medicine; Visit Provider Internal Medicine
DX: T56.0X1D 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, accidental (unintentional), subsequent encounter (principal)
CPT/HCPCS: 36415; 83655

== ENCOUNTER 2024-08-17 09:33 | Outpatient (OUT) | payer OTHER, SELFPAY ==
[2024-08-17 09:52] LABS: Eosinophils Absolute Auto 0.1 10^3/uL (0.0-0.7); Eosinophils Percent Auto 1.8 % (0.9-7.0); Hematocrit 45.3 % (42.0-54.0); Hemoglobin 15.2 g/dL (14.0-18.0); Lymphocytes Absolute Auto 1.2 10^3/uL (1.2-3.8); Lymphocytes Percent Auto 30.8 % (20.5-60.0); Mean Corpuscular HGB Conc 33.6 g/dL (29.9-35.2); Mean Corpuscular Hemoglobin 28.8 pg (25.9-34.0); Mean Platelet Volume 9.2 fL (9.5-13.5); Monocytes Absolute Auto 0.5 10^3/uL (0.3-0.8); Monocytes Percent Auto 12.2 % (1.7-12.0); Neutrophils Absolute Auto 2.1 10^3/uL (1.4-6.5); Neutrophils Percent Auto 54.2 % (43.0-75.0); Platelet Count 201 10^3/uL (150-450); Red Blood Count 5.27 10^6/uL (4.70-6.10); Red Cell Distribution Width 13.2 % (11.0-15.0); White Blood Count 3.9 10^3/uL (4.0-11.0)
--- OUTSIDE RECORDS SUMMARY | 2024-08-17 09:55 | XMS_ITS | CCD ---
Author Organization [facility] ion Partnership [facility] Care Team Providers Care Chemist Biological Name Role Phone MAZIN QUIÑONEZ Unavailable Unavailable GENE STOCK Unavailable UnavailMAZIN Hitchcock Unavailable Unavailable GENE STOCK Unavailable UnavailMAZIN Hitchcock Unavailable Unavailable MAZIN QUIÑONEZ Unavailable Unavailable BALL, DR WILSON Attending Unavailable BALL, DR WILSON Admitting Unavailable BALL, DR WILSON Primary Care Unavailable BALL, DR WILSON Consulting Unavailable BALL, DR WILSON Admitting Unavailable BALL, DR WILSON Primary Care Unavailable BALL, DR WILSON Consulting Unavailable NORA, DR WILSON Attending Unavailable Kobe Nj Kobe Nj DO Primary Care Provider MERCED CHOI Attending Unavailable KOBE NJ Referring Unavailable KOBE NJ Primary Care Unavailable DEVAUGHN THAKUR Admitting Unavailable DEVAUGHN THAKUR Attending Unavailable DEVAUGHN THAKUR Referring Unavailable KOBE NJ Primary Care Unavailable Allergies Allergy Classification Reported Allergen(s) Allergy Type Date of Onset Reaction(s) Facility (11 sources) erythromycin; Translations: [ERYTHROMYCIN] Drug Allergy 08-24-2016 Jimmy Lance [facility] Repository Medications Current Medications Medication Drug Class(es) Dates Sig (Normalized) Sig (Original) amLODIPine 5 mg oral tablet (14 sources) Dihydropyridine Calcium Channel Monica Start: 06-15-2023 End: 06-20-2023 take 1 tablet by mouth once daily Amlodipine 5 mg tablet Active 0 .ROUTE .COMPLEX June 20, 2023 8:27am TAKE 1 TABLET BY MOUTH DAILY Start: 06-15-2023 End: 06-20-2023 take 1 tablet by mouth once daily Amlodipine Discontinued 0 .ROUTE .COMPLEX June 15, 2023 6:37am June 20, 2023 8:29am TAKE 1 TABLET BY MOUTH DAILY Start: 06-15-2023 End: 06-20-2023 take 1 tablet by mouth once daily Amlodipine Discontinued 0 .ROUTE .COMPLEX 90 June 15, 2023 7:37am June 20, 2023 9:29am TAKE 1 TABLET BY MOUTH DAILY Start: 05-18-2023 End: 06-15-2023 take 1 tablet by mouth once daily Amlodipine 5 mg tablet Discontinued 5 MG PO Daily May 17, 2023 11:00pm June 15, 2023 6:37am Finasteride (16 sources) 5-alpha Reductase Inhibitor Start: 08-10-2023 Finasteride 5 mg tab let Active 0 .ROUTE .COMPLEX August 10, 2023 8:12am TAKE 1 TABLET DAILY Start: 08-10-2023 Finasteride Ac tive 0 .ROUTE .COMPLEX 90 August 10, 2023 8:12am TAKE 1 TABLET DAILY Start: 08-10-2023 Finasteride Ac tive 0 .ROUTE .COMPLEX 90 August 10, 2023 9:12am TAKE 1 TABLET DAILY Start: 05-12-2023 End: 08-10-2023 take 1 tablet by mouth once daily Finasteride 5 mg tablet Discontinued 5 MG PO Daily May 11, 2023 11:00pm August 10, 2023 8:12am peg 3350-sod sulf,[id number] 178.7-7.3-0.5 gram recon soln (1 source) Start: 05-17-2024 End: 05-18-2024 peg 3350-sod sulf,[id number]-gzg-nir 178.7-7.3-0.5 gram recon soln Indications: Encounter for screening colonoscopy Take 1 kit by mouth once daily for 1 dose. Please see instructional sheet given by physicians office. 1 each 05/17/2024 05/18/2024 Active pravastatin sodium 20 mg oral tablet (17 sources) HMG-CoA Reductase Inhibitor Start: 05-12-2023 Pravastatin 20 mg ta blet Active 0 .ROUTE .COMPLEX 90 May 12, 2023 11:33am TAKE 1 TABLET DAILY IN THE EVENING Start: 05-12-2023 End: 05-12-2023 take 1 tablet by mouth once daily in the evening Pravastatin 20 mg tablet Discontinued 20 MG PO Every evening May 11, 2023 11:00pm May 12, 2023 11:33am tamsulosin hydrochloride 0.4 mg oral capsule (16 sources) alpha-Adrenergic Monica Start: 05-12-2023 End: 08-16-2023 take 2 capsules by mouth once daily at dinner Tamsulosin 0.4 mg capsule Active 0.4 MG PO Twice daily 180 90 August 16, 2023 8:21am 2 Capsule Orally Once a day, after evening meal; take 1 capsule by mouth once monserrat ly tamsulosin (FLOMAX) 0.4 mg capsule Take 1 capsule (0.4 mg total) by mouth nightly. Active take 2 capsules by m outh once daily at dinner Tamsulosin HCl 0.4 MG 2 Capsule Orally Once a day, after evening meal Active Completed/Discontinued Medications Medication Drug Class(es) Dates Sig (Normalized) Sig (Original) amoxicillin 875 mg oral tablet (1 source) Penicillin-class Antibacterial Start: 01-05-2024 End: 02-15-2024 take 1 tablet by mouth twice daily Amoxicillin 875 mg tablet Discontinued 875 MG PO Twice daily January 05, 2024 12:00am February 15, 2024 9:04am doxycycline hyclate 100 mg oral capsule (3 sources) Tetracycline-class Drug Start: 10-10-2023 End: 02-15-2024 take 1 capsule by mouth twice daily Doxycycline Hyclate 100 mg capsule Discontinued 100 MG PO Twice daily 17 12January 03, 2024 2:01pm February 15, 2024 9:04am losartan potassium 25 mg oral tablet (14 sources) Angiotensin 2 Receptor Monica Start: 05-29-2023 End: 06-20-2023 take 1 tablet by mouth once daily Losartan 25 mg tablet Discontinued 25 MG PO Daily June 15, 2023 11:25am June 20, 2023 8:29am Problems Active Problems Problem Classification Problem Date Documented Date Episodic/Chronic Diseases of white blood cells (3 sources) Leukopenia; Translations: [Decreased white blood cell count, unspecified] 08-16-2023 Chronic Disorders of lipid metabolism (20 sources) Pure hypercholesterolemia ; Translations: [Pure hypercholesterolemia , unspecified] Chronic Esophageal disorders (20 sources) Gastro-esophageal reflux disease with esophagitis; Translations: [Gastroesophageal reflux disease with esophagitis without hemorrhage] 05-20-2023 Chronic Essential hypertension (16 sources) Essential hypertension; Translations: [Essential (primary) hypertension] 05-20-2023 Chronic Genitourinary symptoms and ill-defined conditions (3 sources) Nocturia Episodic Hyperplasia of prostate (17 sources) Nocturia due to benign prostatic hypertrophy; Translations: [Benign prostatic hyperplasia with lower urinary tract symptoms] Chronic Other circulatory disease (3 sources) Elevated blood-pressure reading, without diagnosis of hypertension Episodic Other diseases of veins and lymphatics (11 sources) Peripheral venous insufficiency; Translations: [Venous insufficiency (chronic) (peripheral)] 05-20-2023 Episodic Other diseases of veins and lymphatics (7 sources) Venous insufficiency (chronic) (peripheral); Translations: [Venous (peripheral) insufficiency, unspecified] Episodic Other diseases of veins and lymphatics (1 source) Venous insufficiency of leg; Translations: [Venous insufficiency (chronic) (peripheral)] 05-20-2023 Episodic Other infections; including parasitic (2 sources) Erythema chronica migrans; Translations: [Lyme disease, unspecified] 10-10-2023 Episodic Other infections; including parasitic (2 sources) Lyme disease, unspecified; Translations: [Lyme Disease] 10-10-2023 Episodic Other nutritional; endocrine; and metabolic disorders (3 sources) Hypocalcemia; Translations: [Hypocalcemia] 08-16-2023 Chronic Other nutritional; endocrine; and metabolic disorders (3 sources) Overweight Episodic Other screening for suspected conditions (not mental disorders or infectious disease) (16 sources) Encounter for screening for malignant neoplasm of prostate; Translations: [Patient encounter status] Onset: 08-18-2021 Episodic Comment on above: PSA: .07/2023 Poisoning by nonmedicinal substances (3 sources) 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, accidental (unintentional), initial encounter; Translations: [Toxic effect of lead] 11-21-2023 Chronic Superficial injury; contusion (4 sources) Tick bite; Translations: [Insect bite (nonvenomous) of abdominal wall, initial encounter] 10-10-2023 Episodic Unclassified (1 source) Colon Cancer Screening Onset: 05-17-2024 Unclassified (1 source) screening Onset: 06-11-2024 Past or Other Problems Problem Classification Problem Date Documented Date Episodic/Chronic Abdominal hernia (2 sources) Unilateral inguinal hernia, without obstruction or gangrene, not specified as recurrent; Translations: [Umbilical hernia without obstruction or gangrene] Onset: 02-18-2017 Episodic Other nervous system disorders (1 source) Other acute postprocedural pain; Translations: [Other acute postprocedural pain] Onset: 02-18-2017 Episodic Results Test Name Value Interpretation Reference Range Facility Blood lead detectionon 03-07 Lead Ql (Bld) Blood lead detection Abnormal 0.0-3.4 [facility] Comment on above: Testing performed by Inductively coupled plasma/MassSpectrometry.Verified by repeat analysisAnalysis by inductively coupled plasma/massspectrometry (ICP/MS)This test was developed and its performance characteristicsdetermined by [employer]. It has not been cleared orapproved by the Food and Drug Administration. Environmental Exposure: WHO Recommendation <5.0 Occupational Exposure: OSHA Lead Std 40.0 [place] 30.0 Detection Limit = 1.0Performed at: [facility] [address] [id number] Director: Maury Lopez PhD, Phone: [phone] Basophils Auto (Bld) [#/Vol] on 11-17-2023 Basophils (Bld) [#/Vol] 0.0 10 3/uL 0.0-0.1 [facility] Basophils/100 WBC Auto (Bld) on 11-17-2023 Basophils/100 WBC (Bld) 1.0 % 0.2-2.0 [facility] Blood lead detectionon 11-16 Lead Ql (Bld) 9.4 ug/dL Abnormal 0.0-3.4 [facility] Comment on above: Testing performed by Inductively coupled plasma/MassSpectrometry.Verified by repeat analysisAnalysis by inductively coupled plasma/massspectrometry (ICP/MS)This test was developed and its performance characteristicsdetermined by [facility]. It has not been cleared orapproved by the Food and Drug Administration. Environmental Exposure: WHO Recommendation <5.0 Occupational Exposure: OSHA Lead Std 40.0 [place] 30.0 Detection Limit = 1.0Performed at: [facility] [address] [id number] Director: Maury Lopez PhD, Phone: [phone] Eosinophils/100 WBC Auto (Bl d)on 11-17-2023 Eosinophils/100 WBC (Bld) 3.8 % 0.9-7.0 [facility] Erythrocyte distribution wid th Auto (RBC) [Ratio]on 11-17-2023 Erythrocyte distribution width (RBC) [Ratio] 12.4 % 11.0-15.0 [facility] Hematocrit Auto (Bld) [Volum e fraction]on 11-17-2023 Hematocrit (Bld) [Volume fraction] 46.5 % 42.0-54.0 [facility] Hemoglobin [Mass/volume] in Bloodon 11-17-2023 Hemoglobin (Bld) [Mass/Vol] 15.0 g/dL 14.0-18.0 [facility] Laboratory - Chemistry and C hemistry - challengeon 11-17-2023 Albumin [Mass/Vol] 3.9 g/dL 3.4-5.0 [facility] Calcium [Mass/Vol] 8.8 mg/dL 8.5-10.1 [facility] Laboratory - Hematology and Cell countson 11-17-2023 Immature granulocytes/100 WBC (Bld) 0.3 % 0.0-0.5 [facility] Leukocytes [#/volume] correc hal for nucleated erythrocytes in Blood by Automated counon 11-17-2023 WBC corrected for nucl RBC Auto (Bld) [#/Vol] 4.0 10 3/uL 4.0-11.0 [facility] Lymphocytes Auto (Bld) [#/Vo l]on 11-17-2023 Lymphocytes (Bld) [#/Vol] 1.2 10 3/uL 1.2-3.8 [facility] Lymphocytes/100 WBC Auto (Bl d)on 11-17-2023 Lymphocytes/100 WBC (Bld) 29.9 % 20.5-60.0 [facility] MCH Auto (RBC) [Entitic mass ]on 11-17-2023 MCH (RBC) [Entitic mass] 28.4 pg 25.9-34.0 [facility] MCHC Auto (RBC) [Mass/Vol]on 11-17-2023 MCHC (RBC) [Mass/Vol] 32.3 g/dL 29.9-35.2 [facility] MCV Auto (RBC) [Entitic vol] on 11-17-2023 MCV (RBC) [Entitic vol] 88.1 fL 80.0-94.0 [facility] Monocytes Auto (Bld) [#/Vol] on 11-17-2023 Monocytes (Bld) [#/Vol] 0.4 10 3/uL 0.3-0.8 [facility] Monocytes/100 WBC Auto (Bld) on 11-17-2023 Monocytes/100 WBC (Bld) 10.8 % 1.7-12.0 [facility] Neutrophils Auto (Bld) [#/Vo l]on 11-17-2023 Neutrophils (Bld) [#/Vol] 2.2 10 3/uL 1.4-6.5 [facility] Neutrophils/100 WBC Auto (Bl d)on 11-17-2023 Neutrophils/100 WBC (Bld) 54.2 % 43.0-75.0 [facility] No Panel Informationon 11-16 Eosinophils # (Auto) 0.2 10 3/uL 0.0-0.7 [facility] Immature Granulocyte # (Auto) 0.01 10 3/uL 0.00-0.03 [facility] Platelet mean volume Auto (B ld) [Entitic vol]on 11-17-2023 Platelet mean volume (Bld) [Entitic vol] 9.0 fL Low 9.5-13.5 [facility] Platelets Auto (Bld) [#/Vol] on 11-17-2023 Platelets (Bld) [#/Vol] 186 10 3/uL 150-450 [facility] RBC Auto (Bld) [#/Vol]on RBC (Bld) [#/Vol] 5.28 10 6/uL 4.70-6.10 [facility] Basophils Auto (Bld) [#/Vol] on 08-16-2023 Basophils (Bld) [#/Vol] 0.1 10 3/uL 0.0-0.1 [facility] Basophils/100 WBC Auto (Bld) on 08-16-2023 Basophils/100 WBC (Bld) 1.5 % 0.2-2.0 [facility] Blood lead detectionon 08-15 Lead Ql (Bld) 11.3 ug/dL Abnormal 0.0-3.4 [facility] Comment on above: Testing performed by Inductively coupled plasma/MassSpectrometry.Verified by repeat analysisAnalysis by inductively coupled plasma/massspectrometry (ICP/MS)This test was developed and its performance characteristicsdetermined by [facility]. It has not been cleared orapproved by the Food and Drug Administration. Environmental Exposure: WHO Recommendation <5.0 Occupational Exposure: OSHA Lead Std 40.0 [place] 30.0 Detection Limit = 1.0Performed at: [facility] [employer] [id number] Director: Maury Lopez PhD, Phone: [phone] Cholesterol in LDL Calc [Mas s/Vol]on 08-16-2023 Cholesterol in LDL [Mass/Vol] 92.4 mg/dL [facility] Comment on above: <100 mg/dl [id number] 0-129 mg/dl NEAR OR ABOVE [id number] mg/dl BORDERLINE [id number] mg/dl HIGH>190 mg/dl VERY HIGH Cholesterol in VLDL Calc [Ma ss/Vol]on 08-16-2023 Cholesterol in VLDL [Mass/Vol] 7.6 mg/dL [facility] Eosinophils/100 WBC Auto (Bl d)on 08-16-2023 Eosinophils/100 WBC (Bld) 3.6 % 0.9-7.0 [facility] Erythrocyte distribution wid th Auto (RBC) [Ratio]on 08-16-2023 Erythrocyte distribution width (RBC) [Ratio] 13.5 % 11.0-15.0 [facility] Estimated glomerular filtrat ion rate (GFR) non- Americanon 08-16-2023 GFR/1.73 sq M.predicted among non-blacks MDRD (S/P/Bld) [Vol rate/Area] mL/min/{1.73_m2} >=60 [facility] Globulin Calc (S) [Mass/Vol] on 08-16-2023 Globulin (S) [Mass/Vol] 2.7 g/dL [facility] Hematocrit Auto (Bld) [Volum e fraction]on 08-16-2023 Hematocrit (Bld) [Volume fraction] 43.7 % 42.0-54.0 [facility] Hemoglobin [Mass/volume] in Bloodon 08-16-2023 Hemoglobin (Bld) [Mass/Vol] 14.2 g/dL 14.0-18.0 [facility] Laboratory - Chemistry and C hemistry - challengeon 08-16-2023 Albumin [Mass/Vol] 3.8 g/dL 3.4-5.0 [facility] ALP [Catalytic activity/Vol] 48 U/L 46-116 [facility] ALT [Catalytic activity/Vol] 21 U/L 16-63 [facility] AST [Catalytic activity/Vol] 20 U/L 15-37 [facility] Bilirubin [Mass/Vol] 1.5 mg/dL High 0.2-1.0 [facility] Calcium [Mass/Vol] 8.4 mg/dL Low 8.5-10.1 [facility] Chloride [Moles/Vol] 108 mmol/L High 98-107 [facility] Cholesterol [Mass/Vol] 144 mg/dL <=200 [facility] Cholesterol in HDL [Mass/Vol] 44 mg/dL 40-60 [facility] Comment on above: > or =60 mg/dl - LOW CARDIOVASCULAR RISK<40 mg/dl - HIGH CARDIOVASCULAR RISK CO2 [Moles/Vol] 30.6 mmol/L 21.0-32.0 [facility] Creatinine [Mass/Vol] 0.98 mg/dL 0.70-1.30 [facility] GFR/1.73 sq M.predicted MDRD (S/P/Bld) [Vol rate/Area] mL/min/{1.73_m2} >=60 [facility] Glucose [Mass/Vol] 90 mg/dL 74-106 [facility] Potassium [Moles/Vol] 4.5 mmol/L 3.5-5.1 [facility] Protein [Mass/Vol] 6.5 g/dL 6.4-8.2 [facility] Sodium [Moles/Vol] 144 mmol/L 136-145 [facility] Triglyceride [Mass/Vol] 38 mg/dL <=150 [facility] Urea nitrogen [Mass/Vol] 25.0 mg/dL High 7.0-18.0 [facility] Urea nitrogen/Creatinin e [Mass ratio] 25.5 mg/mg [facility] Laboratory - Hematology and Cell countson 08-16-2023 Immature granulocytes/100 WBC (Bld) 0.3 % 0.0-0.5 [facility] Leukocytes [#/volume] correc hal for nucleated erythrocytes in Blood by Automated counon 08-16-2023 WBC corrected for nucl RBC Auto (Bld) [#/Vol] 3.9 10 3/uL Low 4.0-11.0 [facility] Lymphocytes Auto (Bld) [#/Vo l]on 08-16-2023 Lymphocytes (Bld) [#/Vol] 1.2 10 3/uL 1.2-3.8 [facility] Lymphocytes/100 WBC Auto (Bl d)on 08-16-2023 Lymphocytes/100 WBC (Bld) 29.6 % 20.5-60.0 [facility] MCH Auto (RBC) [Entitic mass ]on 08-16-2023 MCH (RBC) [Entitic mass] 28.7 pg 25.9-34.0 [facility] MCHC Auto (RBC) [Mass/Vol]on 08-16-2023 MCHC (RBC) [Mass/Vol] 32.5 g/dL 29.9-35.2 [facility] MCV Auto (RBC) [Entitic vol] on 08-16-2023 MCV (RBC) [Entitic vol] 88.3 fL 80.0-94.0 [facility] Monocytes Auto (Bld) [#/Vol] on 08-16-2023 Monocytes (Bld) [#/Vol] 0.4 10 3/uL 0.3-0.8 [facility] Monocytes/100 WBC Auto (Bld) on 08-16-2023 Monocytes/100 WBC (Bld) 10.3 % 1.7-12.0 [facility] Neutrophils Auto (Bld) [#/Vo l]on 08-16-2023 Neutrophils (Bld) [#/Vol] 2.1 10 3/uL 1.4-6.5 [facility] Neutrophils/100 WBC Auto (Bl d)on 08-16-2023 Neutrophils/100 WBC (Bld) 54.7 % 43.0-75.0 [facility] No Panel Informationon 08-15 Eosinophils # (Auto) 0.1 10 3/uL 0.0-0.7 [facility] Immature Granulocyte # (Auto) 0.01 10 3/uL 0.00-0.03 [facility] Prostate Specific Antigen Screen 1.05 ng/mL <=4.00 [facility] Platelet mean volume Auto (B ld) [Entitic vol]on 08-16-2023 Platelet mean volume (Bld) [Entitic vol] 9.7 fL 9.5-13.5 [facility] Platelets Auto (Bld) [#/Vol] on 08-16-2023 Platelets (Bld) [#/Vol] 198 10 3/uL 150-450 [facility] RBC Auto (Bld) [#/Vol]on RBC (Bld) [#/Vol] 4.95 10 6/uL 4.70-6.10 [facility] Serum or plasma albumin/glob ulin mass ratioon 08-16-2023 Albumin/Globulin [Mass ratio] 1.4 {ratio} [facility] Serum or plasma anion gap de terminationon 08-16-2023 Anion gap [Moles/Vol] 9.9 mmol/L [facility] Serum or plasma total choles terol/high density lipoprotein (HDL) cholesterol mass kg 08-16-2023 Cholesterol.total/ Cholesterol in HDL [Mass ratio] 3.3 {ratio} [facility] Comment on above: 3.3 - 4.4 LOW RISK4. 4 - 7.1 AVERAGE RISK7.1 - 11.0 MODERATE RISK>11.0 HIGH RISK CBC AUTO DIFFon 08-14-2021 BASO # 0.0 103/ul Normal 0.0-0.1 [facility] Comment on above: Performed By: #### C BC #### [facility] [address] [address] [address] Ridge Conklin Basophils/100 WBC (Bld) 0.9 % Normal 0.2-2.0 [facility] Comment on above: Performed By: #### C BC #### [facility] [address] [place] [address] Dr. Ridge Conklin EO # 0.1 103/ul Normal 0.0-0.7 [facility] Comment on above: Performed By: #### C BC #### [facility] [address] [place] [address] Dr. Ridge Conklin Eosinophils/100 WBC (Bld) 1.1 % Normal 0.9-7.0 [facility] Comment on above: Performed By: #### C BC #### [facility] [address] [place] [address] Dr. Ridge Conklin Erythrocyte distribution width (RBC) [Ratio] 13.3 % Normal 11.0-15.0 [facility] Comment on above: Performed By: #### C BC #### [facility] [address] [place] [address] Dr. Ridge Conklin Hematocrit (Bld) [Volume fraction] 46.6 % Normal 42.0-54.0 [facility] Comment on above: Performed By: #### C BC #### [facility] [address] [place] [address] Dr. Ridge Conklin Hemoglobin (Bld) [Mass/Vol] 15.3 g/dL Normal 14.0-18.0 [facility] Comment on above: Performed By: #### C BC #### [facility] [address] [place] [address] Dr. Ridge Conklin IG # 0.00 10e3/ul Normal 0.00-0.03 [facility] Comment on above: Performed By: #### C BC #### [facility] [address] [place] [address] Dr. Ridge Conklin IG % 0.0 % Normal 0.0-0.5 [facility] Comment on above: Performed By: #### C BC #### [facility] [address] [place] [address] Dr. Ridge Conklin LYMPH # 1.0 103/ul Critically low 1.2-3.8 [facility] Comment on above: Performed By: #### C BC #### [facility] [address] [place] [address] Dr. Ridge Conklin Lymphocytes/100 WBC (Bld) 22.0 % Normal 20.5-60.0 [facility] Comment on above: Performed By: #### C BC #### [facility] [address] [place] [address] Dr. Ridge Conklin MANUAL DIFF REQ NO Normal [facility] Comment on above: Performed By: #### C BC #### [facility] [address] [place] [address] Dr. Ridge Conklin MCH (RBC) [Entitic mass] 28.8 pg Normal 25.9-34.0 [facility] Comment on above: Performed By: #### C BC #### [facility] [address] [place] [address] Dr. Ridge Conklin MCHC (RBC) [Mass/Vol] 32.8 g/dL Normal 29.9-35.2 [facility] Comment on above: Performed By: #### C BC #### [facility] [address] [place] [address] Dr. Ridge Conklin MCV (RBC) [Entitic vol] 87.6 fL Normal 80.0-94.0 [facility] Comment on above: Performed By: #### C BC #### [facility] [address] [place] [address] Dr. Ridge Conklin MONO # 0.4 103/ul Normal 0.3-0.8 [facility] Comment on above: Performed By: #### C BC #### [facility] [address] [place] [address] Dr. Ridge Conklin Monocytes/100 WBC (Bld) 9.4 % Normal 1.7-12.0 [facility] Comment on above: Performed By: #### C BC #### [facility] [address] [place] [address] Dr. Ridge Conklin NEUT # 3.0 103/ul Normal 1.4-6.5 [facility] Comment on above: Performed By: #### C BC #### [facility] [address] [place] [address] Dr. Ridge Conklin Neutrophils/100 WBC (Bld) 66.6 % Normal 43.0-75.0 [facility] Comment on above: Performed By: #### C BC #### [facility] [address] [place] [address] Dr. Ridge Conklin Platelet mean volume (Bld) [Entitic vol] 9.1 fL Critically low 9.5-13.5 [facility] Comment on above: Performed By: #### C BC #### [facility] [address] [place] [address] Dr. Ridge Conklin PLT 213 103/ul Normal 150-450 [facility] Comment on above: Performed By: #### C BC #### [facility] [address] [place] [address] Dr. Ridge Conklin RBC 5.32 106/ul Normal 4.70-6.10 [facility] Comment on above: Performed By: #### C BC #### [facility] [address] [place] [address] Dr. Ridge Conklin WBC 4.5 103/ul Normal 4.0-11.0 [facility] Comment on above: Performed By: #### C BC #### [facility] [address] [place] [address] Dr. Ridge Conklin LIPID PROFILEon 08-14-2021 CHOL-HDL RATIO NORM SEE BELOW Normal [facility] Comment on above: Result Comment: 3.3 - 4.4 LOW RISK 4.4 - 7.1 AVERAGE RISK 7.1 - 11.0 MODERATE RISK >11.0 HIGH RISK Performed By: #### T SH, CMP, LIPID #### [facility] [address] [place] [address] Dr. Ridge Conklin Cholesterol [Mass/Vol] 154 mg/dL Normal <=200 [facility] Comment on above: Performed By: #### T SH, CMP, LIPID #### [facility] [address] [address] [address] Ridge Conklin Cholesterol in HDL [Mass/Vol] 45 mg/dL Normal 40-60 [facility] Comment on above: Performed By: #### T SH, CMP, LIPID #### [facility] [address] [place] [address] Dr. Ridge Conklin Cholesterol in LDL [Mass/Vol] 101.2 mg/dL Normal [facility] Comment on above: Performed By: #### T SH, CMP, LIPID #### [facility] [address] [place] [address] Dr. Ridge Conklin Cholesterol.total/ Cholesterol in HDL [Mass ratio] 3.4 {ratio} Normal [facility] Comment on above: Performed By: #### T SH, CMP, LIPID #### [facility] [address] [place] [address] Dr. Ridge Conklin HDL NORMAL > or = 60 mg/dl - LO W CARDIOVASCULAR RISK <40 mg/dl - HIGH CARDIOVASCULAR RISK Normal [facility] Comment on above: Performed By: #### T SH, CMP, LIPID #### [facility] [address] [place] [address] Dr. Ridge Conklin LDL CALC NORMAL SEE BELOW Normal [facility] Comment on above: Result Comment: <100 mg/dl OPTIMAL 100 - 129 mg/dl NEAR OR ABOVE OPTIMAL 130 - 159 mg/dl BORDERLINE HIGH 160 - 189 mg/dl HIGH >190 mg/dl VERY HIGH Performed By: #### T SH, CMP, LIPID #### [facility] [address] [place] [address] Dr. Ridge Conklin Triglyceride [Mass/Vol] 39 mg/dL Normal <=150 [facility] Comment on above: Performed By: #### T SH, CMP, LIPID #### [facility] [address] [place] [address] Dr. Ridge Conklin VLDL CALC 7.8 mg/dL Normal [facility] Comment on above: Performed By: #### T SH, CMP, LIPID #### [facility] [address] [place] [address] Dr. Ridge Conklin PROF 14(COMP METB)on 06-17-2 022 Albumin [Mass/Vol] 4.3 g/dL Normal 3.4-5.0 [facility] Comment on above: Performed By: #### T SH, CMP, LIPID #### [facility] [address] [address] [address] Ridge Conklin Albumin/Globulin [Mass ratio] 1.5 {ratio} Normal [facility] Comment on above: Performed By: #### T SH, CMP, LIPID #### [facility] [address] [address] [address] Ridge Conklin ALP [Catalytic activity/Vol] 47 U/L Normal 46-116 [facility] Comment on above: Performed By: #### T AIDEN, CMP, LIPID #### [facility] [address] [address] [address] Ridge Conklin ALT [Catalytic activity/Vol] 25 U/L Normal 16-63 [facility] Comment on above: Performed By: #### T AIDEN, CMP, LIPID #### [facility] [address] [address] [address] Ridge Conklin Anion gap [Moles/Vol] 12.6 mmol/L Normal [facility] Comment on above: Performed By: #### T AIDEN, CMP, LIPID #### [facility] [address] [address] [address] Ridge Conklin AST [Catalytic activity/Vol] 17 U/L Normal 15-37 [facility] Comment on above: Performed By: #### T AIDEN, CMP, LIPID #### [facility] [address] [address] [address] Ridge Conklin Bilirubin [Mass/Vol] 1.4 mg/dL Critically high 0.2-1.0 [facility] Comment on above: Performed By: #### T AIDEN, CMP, LIPID #### [facility] [address] [address] [address] Ridge Conklin Calcium [Mass/Vol] 8.9 mg/dL Normal 8.5-10.1 [facility] Comment on above: Performed By: #### T AIDEN, CMP, LIPID #### [facility] [address] [address] [address] Ridge Conklin Chloride [Moles/Vol] 108 mmol/L Critically high 98-107 [facility] Comment on above: Performed By: #### T AIDEN CMP, LIPID #### [facility] [address] [place] [address] Dr. Ridge Conklin CO2 [Moles/Vol] 26.5 mmol/L Normal 21.0-32.0 [facility] Comment on above: Performed By: #### T SH, CMP, LIPID #### [facility] [address] [place] [address] Dr. Ridge Conklin Creatinine [Mass/Vol] 1.10 mg/dL Normal 0.70-1.30 [facility] Comment on above: Performed By: #### T AIDEN CMP, LIPID #### [facility] [address] [place] [address] Dr. Ridge Conklin EGFR-AF DANISH >60 Normal >=60 [facility] Comment on above: Performed By: #### T AIDEN CMP, LIPID #### [facility] [address] [place] [address] Dr. Ridge Conklin EGFR-NON AF DANISH >60 Normal >=60 [facility] Comment on above: Performed By: #### T AIDEN CMP, LIPID #### [facility] [address] [place] [address] Dr. Ridge Conklin Globulin (S) [Mass/Vol] 2.8 g/dL Normal [facility] Comment on above: Performed By: #### T AIDEN CMP, LIPID #### [facility] [address] [place] [address] Dr. Ridge Conklin Glucose [Mass/Vol] 98 mg/dL Normal 74-106 [facility] Comment on above: Performed By: #### T SH, CMP, LIPID #### [facility] [address] [place] [address] Dr. Ridge Conklin Potassium [Moles/Vol] 4.1 mmol/L Normal 3.5-5.1 [facility] Comment on above: Performed By: #### T SH, CMP, LIPID #### [facility] [address] [place] [address] Dr. Ridge Conklin Protein [Mass/Vol] 7.1 g/dL Normal 6.4-8.2 [facility] Comment on above: Performed By: #### T SH, CMP, LIPID #### [facility] [address] [place] [address] Dr. Ridge Conklin Sodium [Moles/Vol] 143 mmol/L Normal 136-145 [facility] Comment on above: Performed By: #### T AIDEN, CMP, LIPID #### [facility] [address] [place] [address] Dr. Ridge Conklin Urea nitrogen [Mass/Vol] 31.0 mg/dL Critically high 7.0-18.0 [facility] Comment on above: Performed By: #### T AIDEN CMP, LIPID #### [facility] [address] [place] [address] Dr. Ridge Conklin Urea nitrogen/Creatinin e [Mass ratio] 28.2 mg/mg Normal [facility] Comment on above: Performed By: #### T AIDEN, CMP, LIPID #### [facility] [address] [place] [address] Dr. Ridge Conklin TSHon 08-14-2021 TSH 1.108 uIU/mL Normal 0.358-3.740 [facility] Comment on above: Performed By: #### T AIDEN, CMP, LIPID #### [facility] [address] [place] [address] Dr. Ridge Conklin CBC AUTO DIFFon 10-02-2020 BASO # 0.0 103/ul Normal 0.0-0.1 [facility] Comment on above: Performed By: #### C BC #### [facility] [address] [place] [address] Gabi Rosalind Basophils/100 WBC (Bld) 0.6 % Normal 0.2-2.0 [facility] Comment on above: Performed By: #### C BC #### [facility] [address] [place] [address] Gabi Rosalind EO # 0.1 103/ul Normal 0.0-0.7 [facility] Comment on above: Performed By: #### C BC #### [facility] [address] [place], [place] [id number] Gabi Rosalind Eosinophils/100 WBC (Bld) 1.8 % Normal 0.9-7.0 [facility] Comment on above: Performed By: #### C BC #### [facility] [address] [place], [place] [id number] Gabi Rosalind Erythrocyte distribution width (RBC) [Ratio] 13.3 % Normal 11.0-15.0 [facility] Comment on above: Performed By: #### C BC #### [facility] [address] [place] [address] Gabi Rosalind Hematocrit (Bld) [Volume fraction] 47.5 % Normal 42.0-54.0 [facility] Comment on above: Performed By: #### C BC #### [facility] [address] [place] [address] Gabi Rosalind Hemoglobin (Bld) [Mass/Vol] 15.4 g/dL Normal 14.0-18.0 [facility] Comment on above: Performed By: #### C BC #### [facility] [address] [place] [address] Gabi Rosalind IG # 0.01 10e3/ul Normal 0.00-0.03 [facility] Comment on above: Performed By: #### C BC #### [facility] [address] [place] [address] Gabi Rosalind IG % 0.2 % Normal 0.0-0.5 [facility] Comment on above: Performed By: #### C BC #### [facility] [address] [place] [address] Gabi Rosalind LYMPH # 1.0 103/ul Critically low 1.2-3.8 [facility] Comment on above: Performed By: #### C BC #### [facility] [address] [place], [place] [id number] Gabi Rosalind Lymphocytes/100 WBC (Bld) 20.3 % Critically low 20.5-60.0 [facility] Comment on above: Performed By: #### C BC #### [facility] [address] [place], [place] [id number] Gabi Rosalind MANUAL DIFF REQ NO Normal [facility] Comment on above: Performed By: #### C BC #### [facility] [address] [place], [place] [id number] Gabielli Boyer MCH (RBC) [Entitic mass] 28.6 pg Normal 25.9-34.0 [facility] Comment on above: Performed By: #### C BC #### [facility] [address] [place] [address] Gabielli Boyer MCHC (RBC) [Mass/Vol] 32.4 g/dL Normal 29.9-35.2 [facility] Comment on above: Performed By: #### C BC #### [facility] [address] [place] [address] Gabielli Harpen MCV (RBC) [Entitic vol] 88.1 fL Normal 80.0-94.0 [facility] Comment on above: Performed By: #### C BC #### [facility] [address] [place] [address] Gabi Rosalind MONO # 0.5 103/ul Normal 0.3-0.8 [facility] Comment on above: Performed By: #### C BC #### [facility] [address] [place] [address] Gabielli Harpen Monocytes/100 WBC (Bld) 9.9 % Normal 1.7-12.0 [facility] Comment on above: Performed By: #### C BC #### [facility] [address] [place] [address] Gabi Rosalind NEUT # 3.3 103/ul Normal 1.4-6.5 [facility] Comment on above: Performed By: #### C BC #### [facility] [address] [place], [place] [id number] Gabi Rosalind Neutrophils/100 WBC (Bld) 67.2 % Normal 43.0-75.0 [facility] Comment on above: Performed By: #### C BC #### [facility] [address] [place], [place] [phone] Gabielli Boyer Platelet mean volume (Bld) [Entitic vol] 9.3 fL Critically low 9.5-13.5 [facility] Comment on above: Performed By: #### C BC #### [facility] [address] [place] [address] Gabielli Harpen PLT 200 103/ul Normal 150-450 [facility] Comment on above: Performed By: #### C BC #### [facility] [address] [address] Gabi Rosalind RBC 5.39 106/ul Normal 4.70-6.10 [facility] Comment on above: Performed By: #### C BC #### [facility] [address] [place] [address] Gabi Rosalind WBC 4.9 103/ul Normal 4.0-11.0 [facility] Comment on above: Performed By: #### C BC #### [facility] [address] [place] [address] Gabielli Harpen LIPID PROFILEon 10-02-2020 CHOL-HDL RATIO NORM SEE BELOW Normal [facility] Comment on above: Result Comment: 3.3 - 4.4 LOW RISK 4.4 - 7.1 AVERAGE RISK 7.1 - 11.0 MODERATE RISK >11.0 HIGH RISK Performed By: #### T SH, CMP, LIPID #### [facility] [address] [place] [address] Gabi Rosalind Cholesterol [Mass/Vol] 155 mg/dL Normal <=200 [facility] Comment on above: Performed By: #### T SH, CMP, LIPID #### [facility] [address] [place] [address] Gabi Rosalind Cholesterol in HDL [Mass/Vol] 47 mg/dL Normal [facility] Comment on above: Performed By: #### T SH, CMP, LIPID #### [facility] [address] [place] [address] Gabi Rosalind Cholesterol in LDL [Mass/Vol] 91.0 mg/dL Normal [facility] Comment on above: Performed By: #### T SH, CMP, LIPID #### [facility] [address] [place], [place] [address] Gabi Rosalind Cholesterol.total/ Cholesterol in HDL [Mass ratio] 3.3 {ratio} Normal [facility] Comment on above: Performed By: #### T AIDEN CMP, LIPID #### [facility] [address] [id number] Gabi Rosalind HDL NORMAL > or = 60 mg/dl - LO W CARDIOVASCULAR RISK <40 mg/dl - HIGH CARDIOVASCULAR RISK Normal [facility] Comment on above: Performed By: #### T AIDEN, CMP, LIPID #### [facility] [address] [address] Gabi Rosalind LDL CALC NORMAL SEE BELOW Normal [facility] Comment on above: Result Comment: <100 mg/dl OPTIMAL 100 - 129 mg/dl NEAR OR ABOVE OPTIMAL 130 - 159 mg/dl BORDERLINE HIGH 160 - 189 mg/dl HIGH >190 mg/dl VERY HIGH Performed By: #### T AIDEN CMP, LIPID #### [facility] [address] [address] Gabi Rosalind Triglyceride [Mass/Vol] 85 mg/dL Normal <=150 [facility] Comment on above: Performed By: #### T AIDEN CMP, LIPID #### [facility] [address] [id number] Gabi Rosalind VLDL CALC 17.0 mg/dL Normal [facility] Comment on above: Performed By: #### T AIDEN CMP, LIPID #### [facility] [address] [id number] Gabi Rosalind PROF 14(COMP METB)on 021 Albumin [Mass/Vol] 4.5 g/dL Normal 3.5-5.0 [facility] Comment on above: Performed By: #### T AIDEN CMP, LIPID #### [facility] [address] [place], [place] [id number] Gabi Rosalind Albumin/Globulin [Mass ratio] 1.5 {ratio} Normal [facility] Comment on above: Performed By: #### T AIDEN, CMP, LIPID #### [facility] [address] [place], [place] [id number] Gabi Rosalind ALP [Catalytic activity/Vol] 38 U/L Normal 38-126 [facility] Comment on above: Performed By: #### T AIDEN CMP, LIPID #### [facility] [address] [address] Gabi Rosalind ALT [Catalytic activity/Vol] 20 U/L Critically low 21-72 [facility] Comment on above: Performed By: #### T AIDEN CMP, LIPID #### [facility] [address] [address] Gabi Rosalind Anion gap [Moles/Vol] 13.7 mmol/L Normal [facility] Comment on above: Performed By: #### T AIDEN CMP, LIPID #### [facility] [address] [place] [address] Gabi Rosalind AST [Catalytic activity/Vol] 22 U/L Normal 17-59 [facility] Comment on above: Performed By: #### T AIDEN CMP, LIPID #### [facility] [address] [place] [address] Gabi Rosalind Bilirubin [Mass/Vol] 0.7 mg/dL Normal 0.2-1.3 [facility] Comment on above: Performed By: #### T AIDEN CMP, LIPID #### [facility] [address] [place] [address] Gabi Rosalind Calcium [Mass/Vol] 8.9 mg/dL Normal 8.4-10.2 [facility] Comment on above: Performed By: #### T AIDEN CMP, LIPID #### [facility] [address] [place] [address] Gabi Rosalind Chloride [Moles/Vol] 108 mmol/L Critically high 98-107 [facility] Comment on above: Performed By: #### T AIDEN CMP, LIPID #### [facility] [address] [place] [address] Gabi Rosalind CO2 [Moles/Vol] 28.1 mmol/L Normal 22.0-30.0 [facility] Comment on above: Performed By: #### T AIDEN CMP, LIPID #### [facility] [address] [place] [address] Gabi Rosalind Creatinine [Mass/Vol] 0.89 mg/dL Normal 0.66-1.25 [facility] Comment on above: Performed By: #### T AIDEN CMP, LIPID #### [facility] [address] [place] [address] Gabi Rosalind EGFR-AF DANISH >60 Normal >=60 [facility] Comment on above: Performed By: #### T AIDEN, CMP, LIPID #### [facility] [address] [address] Gabi Rosalind EGFR-NON AF DANISH >60 Normal >=60 [facility] Comment on above: Performed By: #### T AIDEN CMP, LIPID #### [facility] [address] [place] [address] Gabi Rosalind Globulin (S) [Mass/Vol] 3.0 g/dL Normal [facility] Comment on above: Performed By: #### T AIDEN CMP, LIPID #### [facility] [address] [place] [address] Gabi Rosalind Glucose [Mass/Vol] 104 mg/dL Normal 74-106 [facility] Comment on above: Performed By: #### T AIDEN CMP, LIPID #### [facility] [address] [place] [address] Gabi Rosalind Potassium [Moles/Vol] 4.8 mmol/L Normal 3.4-5.0 [facility] Comment on above: Performed By: #### T AIDEN CMP, LIPID #### [facility] [address] [place] [address] Gabi Rosalind Protein [Mass/Vol] 7.5 g/dL Normal 6.1-8.2 [facility] Comment on above: Performed By: #### T AIDEN CMP, LIPID #### [facility] [address] [place] [address] Gabi Rosalind Sodium [Moles/Vol] 145 mmol/L Normal 137-145 [facility] Comment on above: Performed By: #### T AIDEN, CMP, LIPID #### [facility] [address] [place] [address] Gabi Rosalind Urea nitrogen [Mass/Vol] 28.0 mg/dL Critically high 9.0-20.0 [facility] Comment on above: Performed By: #### T KANNAN WOLFE, LIPID #### [facility] [address] [address] Gabi Boyer Urea nitrogen/Creatinin e [Mass ratio] 31.5 mg/mg Normal [facility] Comment on above: Performed By: #### T KANNAN WOLFE, LIPID #### [facility] [address] [address] Gabi Boyer TSHon 10-02-2020 TSH 1.974 uIU/mL Normal 0.470-4.680 [facility] Comment on above: Performed By: #### T KANNAN WOLFE, LIPID #### [facility] [address] [address] Gabi Boyer TSH RANGE SEE BELOW Normal [facility] Comment on above: Result Comment: <0.3 4 UIU/ml HYPERTHYROID 0.34-5.60 UIU/ml EUTHYROID >5.60 UIU/ml HYPOTHYROID Performed By: #### T KANNAN WOLFE, LIPID #### [facility] [address] [address] Gabi Boyer CNPAwa 11-29-2017 CNPN Telephone (AVPRAD) ----CHRISTOPH GARCIA ([id number]) 1960 MDate Time Provider Biknnacoil22/2/18 MAGGI GARCIA) AVPELIZABETH During your visit today, we recorded the following information about you:Maggi Gacria PA-C 11/29/2017 3:43 PM SignedCalled patient and [...] HivesDate Reviewed: 11/29/2017Reviewed by: Mazin Quiñonez - Fully AssessedReason for Visit: Results [95]Prescriptions as of 11/29/2017 Sig: FINASTERIDE 5 MG TABLET TAMSULOSIN 0.4 MG CAPSULE Take 0.4 mg by mouth. PRAVASTATIN 20 MG TABLET Take 20 mg by mouth once araseli*Problem List As Of Date 11/29/2017 Noted Resolved Inguinal hernia [K40.90] INVALID FOR* More... Umbilical hernia [K42.9] INVALID FOR* More... Status:Closed by MAGGI GARCIA PA-C [facility]29[facility] Visit (GENSAV) ----CHRISTOPH GARCIA ([id number]) 1960 MDate Time Provider Department03/08/17 10:45 AM MAZIN QUIÑONEZ During your visit today, we recorded the following information about you:Referring Provider: GENE STOCK [[id number]]Allergies As of Date: 03/08/2017 Noted Allergy ReactionERTHROMYCIN (ERYTHROMYCIN) 08/24/2016 4 - HivesDate Reviewed: 03/08/2017Reviewed by: Mazin Quiñonez - Fully AssessedReason for Visit: Post Op [174]Primary Visit [...] by MAZIN QUIÑONEZ MD on 03/08/17 Normal [facility] PROGRESSon 03-08-2017 PROGRESS HNO ID: [id number] thor: Mazin Mcgrathervice: General SurgeryAuthor Type: PhysicianType: Progress NotesFiled: 03/08/2017 1:18 PMNote Text:[facility] General SurgeryMazin Quiñonez M.D., Demi AntioneUnc Health[address] [place] [address].[place], [place] [address]Loxin: [phone]: [phone]: CHRISTOPH GARCIA [facility] NO: [id number] OF SERVICE: 03/08/2017PLACE OF ENCOUNTER: [place]onThe patient [...] or return as needed.MAZIN QUIÑONEZ M.D.BB/100Audio #: [id number] Dictated: 03/08/2017 11:50:10Date Typed: 03/08/2017 12:37:14Date Revised: Normal [facility] ANES Ramiro 02-18-2017 ANES POST HNO ID: [id number] thor: Yisel Bankservice: AnesthesiologyAuthor Type: PhysicianType: Anesthesia [...] 18, 2017 : 1:42 PM PAGER/CONTACT #: [phone] [facility] ANES PREOPon 02-18-2017 ANES PREOP HNO ID: [id number] thor: Yisel Bankservice: AnesthesiologyAuthor Type: PhysicianType: Anesthesia [...] February 18, 2017 : 10:50 AM CSN: [id number] [facility] NURSING PROGon 02-18-2017 Protein mass conc HNO ID: [id number] thor: Gisselle (Rn) Gilbert RNService: NursingAuthor Type: Registered NurseType: Nursing Progress NoteFiled: 02/18/2017 3:35 PMNote Text: 1520 Stable PACU stay- Drsgs dry and intact. Pain improved aftermedication. Taking fluids and snack well. Dr Quiñonez here- talked with pt.Home with in stable condition Normal [facility] OPERATIVE NOon 02-18-2017 OPERATIVE NO HNO ID: [id number] thor: Mazin Mcgrathervice: General SurgeryAuthor Type: PhysicianType: Operative ReportFiled: 02/22/2017 1:04 PMNote Text:[facility] - Operative ReportSCHRISTOPH SHAH GDOB: 1960 AGE: 56 SEX: MMRN: [id number] CSN: [id number] SVC: GENS LOCATION: [id number] PHYSICIAN: Mazin Quiñonez M.D.DATE OF PROCEDURE: 02/18/2017PREOPERATIVE DIAGNOSIS: Left inguinal hernia and umbilical hernia.POSTOPERATIVE DIAGNOSIS: Left inguinal hernia and umbilical hernia. Theleft inguinal hernia was direct hernia.NAME OF OPERATION:SURGEON: Mazin Quiñonez M.D.PIPELINE SUPERINTENDENT DIVISION: NONEANESTHESIA:SPECIMENS: None.BLEEDING: None.DRAINS: None.COMPLICATIONS: None.FINDINGS: He had [...] dissection sharply, sac is opened,reduced, closed with [id number] of 3-0 Polysorb. Apreperitoneal plane was developed. [...] I was present throughout both procedures. Justo welder first class, TRE Garcia was responsible for exposure, retraction, and assistance with wound closure.Mazin Quiñonez M.D.General SurgeryBB:[id number]: 02/18/2017 17:28:11T: 02/19/2017 02:22:30Job #: [id number] [facility] PLAN OF [facility] 02-18-2017 PLAN OF CARE HNO ID: [id number] thor: Emmy Chen (Explosive Operator)Service: (none)Author Type: TechnicianType: Plan of CareFiled: 02/18/2017 5:43 PMNote Text:PHARMACY BEDSIDE DELIVERY SERVICEPatient Name: Christoph Matias Nitish: [id number] marked outpatient medications were Filled at: [place] and delivered tothe patient's bedside to patientMedication ListSTART taking these medicationsx HYDROcodone-acetaminophen 5-325 mg per tabletCommonly known as: NORCOTake 1 tablet by mouth every 6 hours as needed for up to 5 days.CONTINUE taking these medications FLOMAX 0.4 mg Co18Jdsxugi drug: tamsulosin ER pravastatin 20 mg tabletCommonly known as: REJIHOLEmmy Chen ([employer])PAGER: Elenita 2016 5:43 PM [facility] PLAN OF CARE HNO ID: [id number] thor: Emmy Chen ([employer])Service: (none)Author Type: TechnicianType: Plan of CareFiled: 02/18/2017 2:13 PMNote Text:Pharmacy Discharge Medication Service:This [facility]. Theprescriptions are currently being processed. A follow-up note will beentered once the prescriptions have been filled and delivered to thepatient. Please contact me with any questions or updates to the patient'sdischarge medications.Emmy Chen ([employer])DCT Contact Info: [facility] PLAN OF CARE HNO ID: [id number] thor: Emmy Chen ([employer])Service: (none)Author Type: TechnicianType: Plan of CareFiled: 02/18/2017 2:13 PMNote Text:JUNIOR ESTIMATOR BEDSIDE DELIVERY SURVEY1. Patient to use [facility] Bedside Delivery - YES2. If fax, patient would like us to fax prescriptions to [facility] a. Pharmacy: b. Location: c. Phone:3. Insurance card on file - YES4. Credit card for payment - YES [facility] PT EDon 02-18-2017 PT ED HNO ID: [id number] thor: Gisselle (Rn) JOSIE Huntervice: NursingAuthor Type: Registered NurseType: Patient EducationFiled: 02/18/2017 2:40 PMNote Text:POST OP LEARNING RESPONSEINSTRUCTION PROVIDED TO: Patient and family memberMETHOD OF INSTRUCTION: Written instruction - handoutsVerbal instructionPATIENT / FAMILY RESPONSE: Verbalizes understanding of: ZFLE-[id number]-I orrect actions to take to reduce postoperative complicationsFOLLOW-UP PLAN: Complete - No need for follow-upSUPPLEMENTAL MATERIAL: NoneREFERRAL (RECOMMENDATION): NoneElectronically Signed By: Gisselle Hunt RN [facility] ED HNO ID: [id number] thor: Ruthie Winston (Rn) JOSIE Nieveservice: NursingAuthor Type: Registered NurseType: Patient EducationFiled: 02/18/2017 11:01 AMNote Text:PRE OP LEARNING ASSESSMENTPROCEDURE/SURGERY: SURGERY: Umbilical/ Inguinal HerniaREADINESS TO LEARNCOGNITIVE ABILITY: Alert and orientedMOTIVATION TO LEARN: EagerInterestedFAMILY SUPPORT: High - Very involved in pt carePATIENT LEARNS BEST BY: Individual InstructionWritten Instruction - Hand-outsVerbal InstructionFACTORS AFFECTING LEARNING: NonePHYSICAL LIMITATIONS AFFECTING LEARNING: NoneElectronically Signed By: Ruthie Nieves RN [facility] NURSING PROGon 02-17-2017 Protein mass conc HNO ID: [id number] thor: Elysia Esparza) JOSIE Armstrongervice: General SurgeryAuthor Type: Registered NurseType: Nursing Progress NoteFiled: 02/17/2017 9:40 AMNote Text:PATIENT PREOPERATIVE INSTRUCTIONSNo ref. provider found has scheduled you for your procedure at [facility]: [phone] --[address] [place] [address].Please enter through the entrance closest to Arturo [...] new medications after today's visit, please contact thesurgery center above.Important Reminders:- Candy, mints, gum and tobacco products are NOT permitted the morning ofsurgery.- Hearing aids, dentures and glasses may be worn the morning of surgery.- NO jewelry, body piercings, makeup, nail equatorial guinean, hairpins or contactsare to be worn the day of surgery.If you develop symptoms such as a fever, cold, or flu, or have otherchanges to your health within TWO DAYS of scheduled surgery or the morningof surgery, please contact the surgery center above.Personal Belongings:- Leave ALL valuables and money at home or with family members.For Outpatient Procedures: - YOU MUST HAVE A RESPONSIBLE LIQUOR BRIDGE OPERATOR TAKE YOU HOME. A WAX POURER OR CABDRIVER CANNOT BE MADE A RESPONSIBLE LIQUOR BRIDGE OPERATOR.- We recommend that a responsible person stays [...] aspossible and regret any inconvenience.Elysia Armstrong RN [facility] NURSING PROGon 02-15-2017 Protein mass conc HNO ID: [id number] thor: Elysia (Rn) Nathaniel, RNService: General SurgeryAuthor Type: Registered NurseType: Nursing Progress NoteFiled: 02/15/2017 2:00 PMNote Text:PACC Nurse Progress NoteHistory AND Physical:PACC Visit Date: N/AOriginal HANDP Date: N/AED visit Date: N/AOutside HANDP Scanned Date: Dr. Stock on 02-07-17, scanned in [facility] [id number] Within Last 6 Months:N/AImaging Within Last 12 Months:N/ACardiac Testing:N/ALast Menstrual Period:LMP Date: N/APostmenopausal >1yr: N/A,S/P Hysterectomy: N/ABMI Percentile (PEDS):N/Sugar Assessment:Medical Date: Dr. Stock, office note scanned in [facility] 07-02-95Rahlwyoglt Review:N/ANarrative:N/APre-o p Considerations:N/AChart Check:Tayler Martincemanuel 2016 1:58 PM [facility] NURSING PROGon 01-25-2017 Protein mass conc HNO ID: [id number] Author: Radha (Rn) Fran RN Service: (none) Author Type: Registered Nurse Type: Nursing Progress Note Filed: 01/25/2017 11:43 AM Note Text: Guidelines faxed to Dr Stock at [phone]. Radha Peters [facility] Office Visit (GENSAV) ----CHRISTOPH GARCIA ([id number]) 1960 MDate Time Provider Department08/24/16 8:45 AM MAZIN QUIÑONEZ During your visit today, we recorded the following information about you:Referring Provider: GENE STOCK [[id number]]Allergies As of Date: 08/24/2016 Noted Allergy ReactionERTHROMYCIN [...] Status:Closed by MAZIN QUIÑONEZ MD on 08/24/16 Normal [facility] PROGRESSon 08-24-2016 PROGRESS HNO ID: [id number] thor: Mazin Mcgrathervice: General SurgeryAuthor Type: PhysicianType: Progress NotesFiled: 08/24/2016 5:08 PMNote Text:[facility] General SurgeryMazin Quiñonez M.D., F.A.CIsakS.Arturo Carrasquillo [id number] [facility].[place], [place] [address]Xqupr: [phone]: [phone]: CHRISTOPH GARCIA 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 He had lost 40 pounds voluntarily and worked through a workplace trainer and assessor this past year or two. He has [...] mesh.Will call to schedule.MAZIN QUIÑONEZ M.D.BB/102Audio #: [id number]: Gene Stock M.D. [address] [facility] [place], [place] [address]Vpeq Dictated: 08/24/2016 09:45:14Date Typed: 08/24/2016 14:44:35Date Revised: Normal [facility] Vital Signs Date Time Vital Sign Value Performing Clinician Facility 05-17-2024 10:57-0400 Body weight 88.81 kg Merced Choi MANUFACTURING ENGINEERING TECHNOLOGIST-DEALERSHIP GENERAL MANAGER Work Phone: [facility] 05-17-2024 10:57-0400 Diastolic blood pressure 80 mm[Hg] Merced Choi MANUFACTURING ENGINEERING TECHNOLOGIST-DEALERSHIP GENERAL MANAGER Work Phone: [facility] 05-17-2024 10:57-0400 Heart rate 54 /min Merced Choi MANUFACTURING ENGINEERING TECHNOLOGIST-DEALERSHIP GENERAL MANAGER Work Phone: [facility] 05-17-2024 10:57-0400 Systolic blood pressure 133 mm[Hg] Merced Choi MANUFACTURING ENGINEERING TECHNOLOGIST-DEALERSHIP GENERAL MANAGER Work Phone: [facility] 02-15-2024 08:32-0500 Body height 180.34 cm [facility] 02-15-2024 08:32-0500 Body mass index (BMI) [Ratio] 26.3 kg/m2 [facility] 02-15-2024 08:32-0500 Body weight 85.72 kg [facility] 02-15-2024 08:32-0500 Diastolic blood pressure 79 mm[Hg] [facility] 02-15-2024 08:32-0500 Heart rate 63 /min [facility] 02-15-2024 08:32-0500 Respiratory rate 12 /min [facility] 02-15-2024 08:32-0500 Systolic blood pressure 123 mm[Hg] [facility] 01-03-2024 13:44-0500 Body height 180.34 cm [facility] 01-03-2024 13:44-0500 Body mass index (BMI) [Ratio] 26.3 kg/m2 [facility] 01-03-2024 13:44-0500 Body weight 85.72 kg [facility] 01-03-2024 13:44-0500 Diastolic blood pressure 77 mm[Hg] [facility] 01-03-2024 13:44-0500 Heart rate 78 /min [facility] 01-03-2024 13:44-0500 Respiratory rate 12 /min [facility] 01-03-2024 13:44-0500 Systolic blood pressure 138 mm[Hg] [facility] 10-10-2023 10:50-0400 Body height 180.34 cm [facility] 10-10-2023 10:50-0400 Body mass index (BMI) [Ratio] 26.1 kg/m2 [facility] 10-10-2023 10:50-0400 Body weight 84.93 kg [facility] 10-10-2023 10:50-0400 Diastolic blood pressure 75 mm[Hg] [facility] 10-10-2023 10:50-0400 Heart rate 60 /min [facility] 10-10-2023 10:50-0400 Respiratory rate 12 /min [facility] 10-10-2023 10:50-0400 Systolic blood pressure 120 mm[Hg] [facility] 08-16-2023 09:10-0400 Body height 180.34 cm [facility] 08-16-2023 09:10-0400 Body mass index (BMI) [Ratio] 25.4 kg/m2 [facility] 08-16-2023 09:10-0400 Body weight 82.78 kg [facility] 08-16-2023 09:10-0400 Diastolic blood pressure 73 mm[Hg] [facility] 08-16-2023 09:10-0400 Heart rate 57 /min [facility] 08-16-2023 09:10-0400 Respiratory rate 12 /min [facility] 08-16-2023 09:10-0400 Systolic blood pressure 113 mm[Hg] [facility] 06-01-2023 15:30-0400 Body height 180.34 cm [facility] 06-01-2023 15:30-0400 Body mass index (BMI) [Ratio] 24.8 kg/m2 [facility] 06-01-2023 15:30-0400 Body weight 80.73 kg [facility] 06-01-2023 15:30-0400 Diastolic blood pressure 79 mm[Hg] [facility] 06-01-2023 15:30-0400 Heart rate 63 /min [facility] 06-01-2023 15:30-0400 Respiratory rate 12 /min [facility] 06-01-2023 15:30-0400 Systolic blood pressure 128 mm[Hg] [facility] 02-02-2023 09:00-0500 Body height 180.34 cm Kobe Ball Other [facility] [employer] Other 02-02-2023 09:00-0500 Body mass index (BMI) [Ratio] 26.25 kg/m2 Kobe Ball Other [facility] Other 02-02-2023 09:00-0500 Body weight 85.37 kg Kobe Ball Other [facility] Other 02-02-2023 09:00-0500 Diastolic blood pressure 90 mm[Hg] Kobe Ball Other [facility] Other 02-02-2023 09:00-0500 Respiratory rate 12 /min Kobe Ball Other [facility] Other 02-02-2023 09:00-0500 Systolic blood pressure 140 mm[Hg] Kobe Ball Other [facility] Other 08-03-2022 10:30-0400 Body height 180.34 cm Kobe Ball Other [facility] Other 08-03-2022 10:30-0400 Body mass index (BMI) [Ratio] 27.58 kg/m2 Kobe Ball Other [facility] Other 08-03-2022 10:30-0400 Body weight 89.72 kg Kobe Ball Other [facility] Other 08-03-2022 10:30-0400 Diastolic blood pressure 81 mm[Hg] Kobe Ball Other [facility] Other 08-03-2022 10:30-0400 Respiratory rate 12 /min Kobe Ball Other [facility] Other 08-03-2022 10:30-0400 Systolic blood pressure 167 mm[Hg] Kobe Ball Other [facility] Other 08-03-2022 09:30-0400 Body height 180.34 cm Kobe Ball Other [facility] Other 08-03-2022 09:30-0400 Body mass index (BMI) [Ratio] 27.58 kg/m2 Kobe Ball Other [facility] Other 08-03-2022 09:30-0400 Body weight 89.72 kg Kobe Ball Other [facility] Other 08-03-2022 09:30-0400 Diastolic blood pressure 81 mm[Hg] Kobe Ball Other [facility] Other 08-03-2022 09:30-0400 Respiratory rate 12 /min Kobe Ball Other [facility] Other 08-03-2022 09:30-0400 Systolic blood pressure 167 mm[Hg] Kobe Ball Other [facility] Other Encounters Encounter Date Encounter Type Care Provider Facility Start: 06-11-2024 End: 06-11-2024 Evaluation and management of inpatient DEVAUGHN THAKUR [facility] Start: 05-17-2024 End: 05-17-2024 Patient encounter procedure Merced Choi MANUFACTURING ENGINEERING TECHNOLOGIST-DEALERSHIP GENERAL MANAGER Work Phone: [facility] Comment on above: Encounter for screen ing colonoscopy (Primary Dx) Start: 05-17-2024 End: 05-17-2024 ambulatory MERCEDMAYRA CHOI [facility] Start: 04-30-2024 End: 05-01-2024 Telephone encounter Devaughn Thakur DO Work Phone: [facility] Start: 04-26-2024 ambulatory [facility] Work Phone: Start: 04-26-2024 Non-patient / Non-visit [facility] Work Phone: Start: 03-07-2024 Non-patient / Non-visit [facility] Work Phone: Start: 02-17-2024 Non-patient / Non-visit [facility] Work Phone: Start: 02-15-2024 End: 02-15-2024 Patient encounter procedure [facility] Work Phone: Start: 01-03-2024 End: 01-03-2024 ambulatory [facility] Work Phone: Start: 01-03-2024 End: 01-03-2024 Patient encounter procedure [facility] Work Phone: Start: 11-17-2023 Non-patient / Non-visit [facility] Work Phone: Start: 10-10-2023 End: 10-10-2023 ambulatory [facility] Work Phone: Start: 10-10-2023 End: 10-10-2023 Patient encounter procedure [facility] Work Phone: Start: 08-16-2023 End: 08-16-2023 ambulatory [facility] Work Phone: Start: 08-16-2023 End: 08-16-2023 Encounter for general adult medical examination without abnormal findings [facility] Start: 08-16-2023 End: 08-16-2023 Patient encounter procedure [facility] Work Phone: Start: 06-01-2023 End: 06-01-2023 ambulatory [facility] Work Phone: Start: 06-01-2023 End: 06-01-2023 Patient encounter procedure [facility] Work Phone: Start: 05-12-2023 Non-patient / Non-visit [facility] Work Phone: Start: 02-02-2023 End: 02-02-2023 ambulatory Kobe Nj Other [facility] Other Start: 02-02-2023 Office outpatient vi sit 25 minutes Kobe Nj [facility] Start: 08-23-2022 End: 08-23-2022 ambulatory Kobe Nj Other [facility] Other Start: 08-23-2022 Telephone encounter Kobe Nj [facility] Start: 08-11-2022 End: 08-11-2022 ambulatory Kobe Nj Other [facility] Other Start: 08-11-2022 Telephone encounter Kobe SAMAYOA [facility] Start: 08-03-2022 End: 08-03-2022 ambulatory Kobe Nj Other [facility] Other Start: 08-03-2022 Encounter for genera l adult medical examination without abnormal findings Kobe Nj [facility] Start: 08-03-2022 Periodic preventive med est patient 40-64yrs Kobe Nj [facility] Start: 08-18-2021 Encounter for genera l adult medical examination without abnormal findings DR OKBE [facility] Start: 08-14-2021 End: 08-15-[address] KOBE NJ Facility: Start: 08-14-2021 End: 08-15-2021 Encounter for general adult medical examination without abnormal findings DR KOBE NJ Facility:[facility] Start: 10-02-2020 End: 10-03-[address] KOBE NJ Facility:[facility] Start: 03-08-2017 End: 03-08-2017 Ambulatory MAZIN Ohara OLAMIDE [facility] Start: 02-18-2017 End: 02-18-2017 Patient encounter MAZIN QUIÑONEZ [facility] Start: 08-24-2016 End: 08-24-[address] [facility] Procedures Date Procedure Procedure Detail Performing Clinician Start: 08-14-[address] ROSENDA [place] Comment on above: Performed By: #### P SASC #### [facility] [address] [place], [place] [address] Dr. Ridge Conklin Start: 10-02-[address] ROSENDA [place] Comment on above: Performed By: #### P SASC #### [facility] [address] [place], [place] [address] Gabi Boyer Plan of Treatment Date Care Activity Detail Author Start: 05-17-2025 Tobacco Screening Tobacco Screening [facility] Start: 05-17-2024 End: 05-17-2024 Patient encounter procedure 05/17/2024 11:00 AM EDT Office Visit [facility] General Surgery [address] [place] [address] Merced Choi, MANUFACTURING ENGINEERING TECHNOLOGIST-[facility] [address] [place] [address] [facility] Start: 04-26-2024 Patient referral [facility] Work Phone: Start: 10-30-2023 Influenza vaccination Influenza Vacc ine [facility] Start: 11-23-2009 Administration of varicella zoster vaccine Zoster (Shingles) Vaccine (1 of 2) [facility] Start: 11-23-1978 DTaP,Tdap and Td Vac cines (1 - Tdap) DTaP,Tdap and Td Vaccines (1 - Tdap) [facility] Start: 11-23-1977 Adult BMI Screening Adult BMI Screen ing [facility] Start: 1971 Depression Screening Depression Scre ening [facility] Start: 1971 Tobacco Screening Tobacco Screening [facility] End: 05-17-2025 Colonoscopy Colonoscopy GI Routine Encounter for screening colonoscopy 1 Occurrences starting 05/17/2024 until 05/17/2025 [facility]: Comment on above: 1 Occurrences starti ng 05/17/2024 until 05/17/2025 Colonoscopy flx dx w/collj spec when pfrmd COLONOSCOPY DIAGNOSTIC / SCREENING Screen for colon cancer [facility] Comprehensive metabo lic 2000 panel - Serum or Plasma [facility] Patient referral [facility] Work Phone: [facility] Payers Date Payer Category Payer Managed Care Other (unspecified) [employer] [id number] 2024 Unknown [id number] 1960 Unknown [id number] 1960 Unknown [id number] 1959 Unknown [id number] 1960 Unknown [id number] 1960 Unknown [id number] Unknown MMO [id number] Social History Date Type Detail Facility Start: 08-09-2018 End: 04-10-2020 Sex Assigned At [facility] Igor brownlee [employer] Other Start: 1960 Sex Assigned At Male F [facility] Start: 10-03-2014 End: 04-26-2024 Sex Male (finding) [facility] Start: 08-09-2018 End: 04-10-2020 History of Social function [facility] Childcare Unknown [facility] Start: 1960 Sex assigned at Not on file P [facility] Start: 05-17-2024 Tobacco smoking stat [facility] Never smoked tobacco [facility] Start: 05-17-2024 Tobacco use and exposure Smokeless tobacco non-user [facility] Start: 05-17-2024 Alcoholic beverage intake Ex-drinker (finding) [facility] Clinical Notes 08-03-2022 to 05-17-2024 Merced Choi, MATTIE-DEALERSHIP GENERAL MANAGER - 05/17/2024 11:00 AM EDTTelephone Encounter - Aimee Ko - 04/30/2024 1:58 PM ESTTelephone Encounter - Aimee Ko - 04/30/2024 1:58 PM EST Note Date & Type Note Facility 05-17-2024 History of Presen t illness Narrative Chief Complaint: Colon cancer screening History of Present Illness Christoph Garcia is a 63 y.o. male who presents to the office for colon cancer screening. This is his first colonoscopy. He denies any changes in his bowel habits including constipation, diarrhea, abdominal pain, rectal bleeding. There is no family history of colon cancer. Review of Systems Constitutional: Negative for fever and unexpected weight change. HENT: Negative for trouble swallowing. Respiratory: Negative for shortness of breath. Cardiovascular: Negative for chest pain. Gastrointestinal: Negative for abdominal pain, diarrhea, constipation and blood in stool. Genitourinary: Negative for dysuria and difficulty urinating. Musculoskeletal: Negative for gait problem. Skin: Negative for rash and wound. Neurological: Negative for dizziness, weakness and light-headedness. Hematological: Does not bruise/bleed easily. Psychiatric/Behavioral: Negative for confusion. Past Medical History: Diagnosis Date Hypertension Past Surgical History: Procedure Laterality Date APPENDECTOMY Allergies Allergen Reactions Erythromycin Hives and Rash Current Outpatient Medications: amLODIPine (NORVASC) 5 mg tablet, Take 1 tablet (5 mg total) by mouth in the morning., Disp: , Rfl: finasteride (PROSCAR) 5 mg tablet, Take 1 tablet (5 mg total) by mouth in the morning., Disp: , Rfl: losartan (COZAAR) 25 mg tablet, Take 1 tablet (25 mg total) by mouth in the morning., Disp: , Rfl: pravastatin (PRAVACHOL) 20 mg tablet, Take 1 tablet (20 mg total) by mouth in the morning., Disp: , Rfl: tamsulosin (FLOMAX) 0.4 mg capsule, Take 1 capsule (0.4 mg total) by mouth nightly., Disp: , Rfl: peg 3350-sod sulf,tuwt-szd-alu 178.7-7.3-0.5 gram recon soln, Take 1 kit by mouth once daily for 1 dose. Please see instructional sheet given by physicians office., Disp: 1 each, Rfl: 0 Social History Socioeconomic History Marital status: Spouse name: Not on file Number of children: Not on file Years of education: Not on file Highest education level: Not on file Occupational History Not on file Tobacco Use Smoking status: Never Smokeless tobacco: Never Vaping Use Vaping status: Never Used Substance and Sexual Activity Alcohol use: Not Currently Drug use: Never Sexual activity: Defer Other Topics Concern Not on file Social History Narrative Not on file Social Drivers of Health Financial Resource Strain: Not on file Food Insecurity: Not on file Transportation Needs: Not on file Physical Activity: Not on file Stress: Not on file Social Connections: Not on file Interpersonal Safety: Not on file Housing Instability: Not on file History reviewed. No pertinent family history. Objective Physical Exam Constitutional: General: He is not in acute distress. Appearance: Normal appearance. He is not ill-appearing. HENT: Head: Normocephalic and atraumatic. Mouth/Throat: Mouth: Mucous membranes are moist. Eyes: Pupils: Pupils are equal, round, and reactive to light. Cardiovascular: Rate and Rhythm: Normal rate. Pulmonary: Effort: Pulmonary effort is normal. No respiratory distress. Abdominal: General: There is no distension. Musculoskeletal: General: Normal range of motion. Skin: General: Skin is warm and dry. Neurological: Mental Status: He is alert and oriented to person, place, and time. Mental status is at baseline. Vital Signs: Blood pressure 133/80, pulse 54, weight 88.8 kg (195 lb 12.8 oz). Respiratory Source: No data recorded Admission Weight: Weight: 88.8 kg (195 lb 12.8 oz) Labs Lab Results Component Value Date WBC 6.2 05/09/2015 HGB 15.6 05/09/2015 HCT 47.8 05/09/2015 MCV 82.9 05/09/2015 PLT 256 05/09/2015 Lab Results Component Value Date GLU 92 05/09/2015 CALCIUM 9.2 05/09/2015 K 4.2 05/09/2015 CO2 29 05/09/2015 CL 105 05/09/2015 BUN 19 05/09/2015 CREATININE 0.90 05/09/2015 No results found for: AMYLASE No results found for: LIPASE Lab Results Component Value Date ALT 33 05/09/2015 AST 28 05/09/2015 No results found for: INR , PROTIME Assessment Christoph Garcia is a 63 y.o.male who presents to the office for screening colonoscopy. Plan Colonoscopy with possible biopsy and/or polypectomy. Risks, benefits, and alternatives discussed with patient. Educated on bowel evacuation preparation. Patient verbalizes understanding and wishes to proceed. Evaluation included: Preparing to see the patient (e.g., review of tests) Obtaining and/or reviewing separately obtained history Performing a medically appropriate examination and/or evaluation Counseling and educating the patient/family/caregiver Referring and communicating with other health hourly caregiver Encounter for screening colonoscopy [Z12.11] MERCED CHOI APRN-DEALERSHIP GENERAL MANAGER [facility] [place] This note was created with the assistance of a speech recognition program. While intending to generate a timely document that accurately reflects the content of the visit, no guarantee can be provided that every grammatical or spelling mistake has been or will be identified or corrected. Thank you for your understanding. TARIQ Oliveira 05/17/24 1119 documented in this encounter [facility] 04-30-2024 Miscellaneous Notes Formattin g of this note might be different from the original. Called Christoph regarding the screening colonoscopy referral that our office received from Dr Nj, left a message on voicemail to call the office back to schedule an appointment. Christoph called the office back at 9:55 am and left a message on voicemail to call him back. 10:50 am called Christoph back and left a message on his voicemail to call the office back to schedule an appointment. Christoph called the office back and we scheduled him an appointment on 05/17/2024. documented in this encounter [facility] 04-30-2024 Telephone encount er Note Called Christoph regarding the screening colonoscopy referral that our office received from Dr Nj, left a message on voicemail to call the office back to schedule an appointment. [facility] 04-30-2024 Telephone encount er Note Christoph called the office back at 9:55 am and left a message on voicemail to call him back. 10:50 am called Christoph back and left a message on his voicemail to call the office back to schedule an appointment. [facility] 04-30-2024 Telephone encount er Note Christoph called the office back and we scheduled him an appointment on 05/17/2024. [facility] 02-15-2024 Evaluation note Diagnosis Onset Date Resolution Benign prostatic hyperplasia with lower urinary tract symptoms acute February 15, 2024 8:23am Chronic venous insufficiency acute February 14, 2 024 8:23am Elevated cholesterol acute Dece 2023 8:23am GERD (gastroesophageal reflux disease) acute February 14, 2 024 8:23am Lead toxicity acute February 142023 8:23am Primary hypertension acute 2023 8:23am [facility] Work Phone: 1(364) 171-828412-06-2023 Evaluation note* Encounter Date Diagnosis Assessment Notes Treatment Notes Treatment Clinical Notes Jan, Pure hypercholestero lemia (ICD-10 - E78.00) Instructed on diet and exercise with continued statin therapy.Discussed the beneficial effects of lowering cholesterol in [...] minutes, 3-5 times weekly. Restarted exercise routine [employer] Other 06-06-2023 Evaluation note* Encounter Date Diagnosis Assessment Notes Treatment Notes Treatment Clinical Notes Jul, Wellness examination (ICD-10 - Z00.00) Healthy diet and exercise. Reviewed age-appropriate preventive testing recommended. Jul, Pure hypercholestero lemia (ICD-10 - E78.00) Instructed on diet and exercise with continued statin therapy.Discussed the beneficial effects of lowering cholesterol in [...] minutes, 3-5 times weekly. Jul, Screening PSA (prost ate specific antigen) (ICD-10 - Z12.5) [facility] [employer] Other Evaluation noteNo InformationNort [employer] Other Evaluation note* Diagnosis Onset Date Resolution Status Chronic venous insufficiency of lower extremity acute Elevated cholesterol acute Primary hypertension acute [facility] Work Phone: Evaluation note* Diagnosis Onset Date Resolution Status Elevated cholesterol acute Primary hypertension acute Benign prostatic hyperplasia with lower urinary tract symptoms acute Chronic venous insufficiency acute Elevated cholesterol acute Gastroesophageal reflux dise ase with esophagitis without hemorrhage acute GERD (gastroesophageal reflux disease) acute Primary hypertension acute Screening for colon cancer a cute Screening PSA (prostate specific antigen) noneactive Wellness examination noneact [facility] Work Phone: Evaluation note* Diagnosis Onset Date Resolution Status Benign prostatic hyperplasia with lower urinary tract symptoms acute Chronic venous insufficiency acute Elevated cholesterol acute Gastroesophageal reflux dise ase with esophagitis without hemorrhage acute GERD (gastroesophageal reflux disease) acute Primary hypertension acute Screening for colon cancer a cute Screening PSA (prostate specific antigen) noneactive Wellness examination noneact [facility] Work Phone: Evaluation note* Diagnosis Onset Date Resolution Status Erythema migrans (Lyme disease) acute Tick bite of abdomen acute Erythema migrans (Lyme disease) acute Tick bite of abdomen acute [facility] Work Phone: Evaluation note* Diagnosis Encounter for screening colonoscopy- Primary documented in this encounter [facility] [employer] SystemHistory general Narrative - Reported* Type Description Date Medical History Primary hypertension Medical History Pure hypercholesterolemia Medical History Gastroesophageal ref lux disease with esophagitis without hemorrhage Medical History Benign prostatic hyp erplasia with lower urinary tract symptoms Medical History Chronic venous insufficiency Surgical History REPAIR,HERNIA, UMBILICAL 2017 Surgical History APPENDECTOMY 1979 Hospitalization History SEE SURGICAL HX [facility] [employer] Other History general Narrative - [facility] [employer] Other History general Narrative - [facility] [employer] Other Hospital Discharge instructionsAmbulatory Orders* Referral to General Surgery Location: [facility] Work Phone: InstructionsNot on filedocumented in this encounter [facility]Un[facility] SystemInstructionsNot on filedocumented in this encounter [facility] Summary Purpose Family History No Family History Records FoundNo Family History Records FoundNo Family History Records FoundNo Family History Records FoundNo Family History Records Found Advance Directives No Advanced Directives Records Found Advance Directive Response Recorded Date/ Time Advance Directives No March 24, 2023 12:32pm Advance Directive Response Recorded Date/ Time Advance Directives No March 24, 2023 11:32am Procedure Findings Note HNO ID: [id number]: Cassi Mcgrathervice: General SurgeryAuthor Type: PhysicianType: Brief Op NoteFiled: 02/18/2017 3:03 PMNote Text:BRIEF OPERATIVE / PROCEDURE NOTELOG ID: [id number]/Procedure Date: 02/18/2017Incision/Procedure Start Time: 12:28 PMIncision Close/Procedure End Time: 1:08 PMSurgeon(s)/Proceduralist(s) and Broadcast Correspondent(s):Surgeon(s) and Role: * Mazin Quiñonez - PrimaryPhysician Broadcast Correspondent: Maggi Anna) BrauliorickProcedure(s): repair with mesh direct left inguinal and umbilical herniasAnesthesia: GeneralFindings: same, large directEstimated Blood Loss: 0 mlSpecimens: NoneComplications: NonePre-Op/Pre-Procedure Diagnosis: left and umbilical herniasPost-Op/Post-Procedure Diagnosis: Umbilical hernia [K42.9]Inguinal hernia[K40.90] , directSIGNATURE: Mazin Quiñonez MD PATIENT NAME: Christoph GarciaDATE: February [...] (prostate specific antigen) Wellness examination Chief Complaint tick bite - groin ar ea tick bite Reason for Visit Erythema migrans (Ly me disease) Tick bite of abdomen Erythema migrans (Lyme disease) Tick bite of abdomen Chief Complaint Admit Date 6 month f/u February 15, 2024 8:23am CC Adult Risk Stratification February 162023 11:08am Referral Order April 26, 2024 8:33pm Reason for Visit Admit Date Benign prostatic hyperplasia with lower urinary tract symptoms February 15, 2024 8:23am Chronic venous insufficiency February 142023 8:23am Elevated cholesterol February 15, 2024 8:23am GERD (gastroesophageal reflux disease) D ecember 2023 8:23am Lead toxicity February 15, 2024 8:23am Primary hypertension February 15, 2024 8:23am Additional Source Comments (unrecognized sect ion and content) No Status Records FoundNo Status Records FoundNo Status Records FoundNo Status Records FoundNo Status Records Found INFORMATION SOURCE (unrecogn ized section and content) DATE CREATED AUTHOR 08/23/2017 [facility] DATE CREATED AUTHOR AUTHOR'S ORGANIZ ATION 12/29/2017 [facility] DATE CREATED AUTHOR AUTHOR'S ORGANIZ ATION 08/19/2021 [facility] DATE CREATED AUTHOR AUTHOR'S ORGANIZ ATION [facility] DATE CREATED AUTHOR AUTHOR'S ORGANIZ ATION 06/11/2024 [facility] REASON FOR VISIT (unrecogniz ed section and content) Reason Comments Colon Cancer Screening Care Teams (unrecognized sec tion and content) Team Status: Active Member Role Status Dates Kobe Nj DO Primary Care Provider Active Team Status: Inactive Member Role Status Massimo Nj DO Primary Care Provide r, Attending Provider Active Start: June 01, 2023 End: June 01, 2023 Team Status: Inactive Member Role Status Massimo Nj DO Primary Care Provide r, Attending Provider Active Start: August 16, 2023 End: August 16, 2023 Team Status: Active Member Role Status Massimo Nj DO Primary Care Provider Active Start: May 12, 2023 ERYN Oshea Attending Provider Active Start : May 12, 2023 Team Status: Inactive Member Role Status Massimo Nj DO Primary Care Provide r, Attending Provider Active Start: October 10, 2023 End: October 10, 2023 Team Status: Active Member Role Status Massimo Nj DO Primary Care Provide r, Attending Provider Active Start: November 17, 2023 Team Status: Inactive Member Role Status Massimo Nj DO Primary Care Provide r, Attending Provider Active Start: January 03, 2024 End: January 03, 2024 Team Status: Inactive Member Role Status Massimo Nj DO Primary Care Provide r, Attending Provider Active Start: February 15, 2024 End: February 15, 2024 Team Status: Active Member Role Status Massimo Nj DO Primary Care Provide r, Attending Provider Active Start: February 17, 2024 Team Status: Active Member Role Status Dates Kobe Nj DO Primary Care Provide r, Attending Provider Active Start: March 07, 2024 Team Status: Active Member Role Status Dates Kobe Nj DO Primary Care Provide r, Attending Provider Active Start: April 26, 2024 Chemist Biological Relationship Specialty Start Date End Date Kobe Nj DO [address] [place] [address] PCP - General Internal Medicine 04/30/24 Chemist Biological Relationship Specialty Start Date End Date Kobe Nj DO [address] [place] [address] PCP - General Internal Medicine 04/30/24 Goals (unrecognized section and content) Goals may [...] BE BASED ON THE PRIMARY CLINICAL RECORDS. [facility] [employer] provides no warranty or guarantee of the accuracy or completeness of information in this document.
[2024-08-17 10:08] LABS: Alanine Aminotransferase 21 U/L (16-63); Albumin Globulin Ratio 1.4; Albumin Level 3.8 g/dL (3.4-5.0); Alkaline Phosphatase 51 U/L (46-116); Anion Gap 13.7; Aspartate Amino Transferase 19 U/L (15-37); BUN Creatinine Ratio 21.1; Bilirubin Total 1.2 mg/dL (0.2-1.0); Calcium 8.4 mg/dL (8.5-10.1); Carbon Dioxide 27.6 mmol/L (21.0-32.0); Chloride 107 mmol/L (98-107); Cholesterol 143 mg/dL (<=200); Estimated GFR (African America >60 (>=60 mL/min/1.73m^2); Estimated GFR (Non-African Ame >60 (>=60 mL/min/1.73m^2); Globulin 2.8 g/dL; Glucose 90 mg/dL (74-106); HDL Cholesterol 48 mg/dL (40-60); LDL Cholesterol Calculated 83.6 mg/dL; Potassium 4.3 mmol/L (3.5-5.1); Sodium 144 mmol/L (136-145); Total Protein 6.6 g/dL (6.4-8.2); Triglycerides 57 mg/dL (<=150); VLDL CHOLESTEROL 11.4 mg/dL
[2024-08-17 11:12] LABS: Prostate Specific Antigen Scrn 1.17 ng/mL (<=4.00)
== END 2024-08-17 09:34 | disposition home or self-care (01) ==
LOC: LAB 09:39
PROVIDERS: PCP Internal Medicine; Visit Provider Internal Medicine
DX: E78.00 Pure hypercholesterolemia, unspecified (principal); I10 Essential (primary) hypertension; E83.51 Hypocalcemia; D72.819 Decreased white blood cell count, unspecified; Z12.5 Encounter for screening for malignant neoplasm of prostate
CPT/HCPCS: 36415; 80053; 80061; 85025; G0103

== ENCOUNTER 2025-02-18 08:03 | Outpatient (OUT) | payer OTHER, SELFPAY ==
--- OUTSIDE RECORDS SUMMARY | 2025-02-18 08:06 | XMS_ITS | Clinical Summary ---
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 200 g Active Active Problems ProblemNoted DateDiagnosed DateInguinal ohgxqm1709/06/2016 Overview (09/06/2016): Added automatically from request for surgery [id number] Umbilical buktxx1909/06/2016 Overview (09/06/2016): Added automatically from request for surgery [id number] Family History Medical HistoryRelationCommentsOtherFatherParkinson'sCOPDMotherRelationStatus CommentsFatherMother Social History Tobacco UseTypesPacks/DayYears UsedDateSmoking Tobacco: NeverSmokeless Tobacco: NeverAlcohol UseStandard Drinks/WeekCommentsNo0 (1 standard drink = 0.6 oz pure alcohol)PHQ-2AnswerDate RecordedPHQ-2 adzwg097Area Deprivation Index AnswerDate RecordedNational Score (1-100), lower number is lower riskNot on file 02/05/2020State Score (1-10), lower number is lower riskNot on file02/05/2020 Data from: https://www.neighborhoodatlas.medicine.[facility].edu/. Last address used for calculationNot on file02/05/2020Sex and Gender InformationValueDate Recorded Sex Assigned at BirthNot on fileLegal GvoIeaq4408/20/2016 10:04 AM EDTGender IdentityNot on fileSexual OrientationNot on file Last Filed Vital Signs Vital SignReadingTime TakenCommentsBlood Pdwcurwd114/8712/14/2017 8:42 AM EDT Qrvgn274712/14/2017 8:42 AM PFTRzqhsxizqnm69.5 ??C (97.7 ??F)02/18/2017 1:33 PM ESTRespiratory Bury8769 8:42 AM EDTOxygen Wxpywfroza547%02/18/2017 2:30 PM ESTInhaled Oxygen Concentration--Qquuvu13.4 kg (175 lb)12/14/2017 8:42 AM EDT Rauhpi366.1 cm (5' 10.5 )12/14/2017 8:42 AM EDTBody Mass Index24.7512/14/2017 8:42 AM EDT Plan of Treatment Health MaintenanceDue DateLast DoneCommentsAnxiety Lbxmtdicb67/26/1978Depression Eghfrczal38/26/1978HIV Dypiqslac96/26/1978Hepatitis C Qducwewuj35/26/1978 DTaP,Tdap,Td Vaccine (1 - Tdap)11/23/1978Lipid Egrxcvfwn52/26/1995CT Zeprnomkcqjt98/26/2005Cologuard (FIT-DNA)11/23/20045177Cklcwmmevye70/26/2005 Colorectal Cancer Fsgyhjjgp16/26/2005Diabetes Fjomxjasi58/26/2005Fecal Occult Blood11/23/2004Prostate Cancer Screening Vpaxvptgny33/26/2005Sigmoidoscopy 11/23/2004Pneumococcal Vaccine: 50+ (1 of 1 - PCV)11/23/2009Shingrix Vaccine (1 of 2)11/23/2009Covid-19 Vaccine (1 - season)2024Influenza Vaccine (#1)2024dvance Directive Omdeszambf79/26/2025RSV Vaccine (1 - 1-dose 75+ series)11/23/2034 Medical Devices ImplantedTypeAreaManufacturerDevice IdentifierShelf Expiration DateModel / Serial / LotMesh Marlex Perfix Xl Polypropylene 2x1.6in Surgical Nonabsorbable Plug - [id number] Implanted:02/18/2017 at [facility] (Quantity not on file)MeshLeft: Inguinal [employer]10/25/[id number] / / [id number] Ventralex St Sepra Sorbaflex 1.7in Small Bath Polypropylene - [id number] Implanted:02/18/2017 at [facility] (Quantity not on file)MeshN/A: Umbilical [employer]12/25/[id number] / / [id number] [place] [address] MemberSubscriberPlan / Payer (Effective 2018-Present)Name:Christoph Garcia Relation to Subscriber:SelfName:Christoph Garcia Payer ID:Not on file Type:PPO Address: [place] [id number] Care Teams Team MemberRelationshipSpecialtyStart DateEnd Veto Stock PCP - GeneralFamily Medicine08/20/16
--- OUTSIDE RECORDS SUMMARY | 2025-02-18 08:07 | XMS_ITS | Patient Health Record ---
Author Organization [facility] Address [address] [place] [address] Care Team Providers Care Records Supervisor Name Role Phone Kobe Nj DO Primary Care Provider Unavaila ble Allergies Allergen (clinical drug ingredient) Drug/Non Drug Allergy documented on EMR Reaction Allergy Type Onset Date Status erythromycin Erythromycin rash Drug Allergy Active Reason For Referral No Information Medications Medication SIG (Take, Route, Frequency, Duration) Notes Start Date End Date Status Tamsulosin HCl 0.4 MG Oral; Duration: 90 Days ActivePravastatin Sodium 20 MGOral; Duration: 90 DaysActiveFinasteride 5 MGOral; Duration: 90 DaysActive Social History Tobacco Use: Social History Observation Description Date Details (start date - stop date) Never Smoker NA - NA Tobacco Use/Smoking Question Answer Notes Patient is a nonsmoker Plan Of Treatment No Information Insurance Providers Payer Name Payer Address Payer Phone Subscriber Number Group Number Insured Name Patient Relationship to Insured Coverage Start Date Coverage End Date O [address] [place], [place] [id number] Christoph Garcia Self - patient is the insured Medical (General) History Surgical History Surgery Date(Month/Year) Hernia Hospitalization History Reason Date(Month/Year) hernia repair
--- OUTSIDE RECORDS SUMMARY | 2025-02-18 08:07 | XMS_ITS | Clinical Summary ---
Author Organization [facility] Address [address] [place] [address] Care Team Providers Care Spool Maker Name Role Phone Kobe Nj Primary Care Provider [phone] Allergies Active AllergyReactionsCriticalityNoted DateCommentsErythromycinHives,RashHigh 08/24/2016 Other Reaction(s): Unknown Medications MedicationSigDispense QuantityRefillsLast FilledStart DateEnd DateStatus finasteride (Proscar) 5 MG tablet Take 5 mg by mouth DailyActive losartan (Cozaar) 25 MG tablet Take 25 mg by mouth DailyActive amLODIPine (Norvasc) 5 MG tablet Take 5 mg by mouth DailyActive clindamycin (Cleocin T) 1 % lotion APPLY A THIN LAYER TO AFFECTED AREAS ON SCALP ONCE DAILY4Active pravastatin (Pravachol) 20 MG tablet Take 20 mg by mouth DailyActive tamsulosin (Flomax) 0.4 MG 24 hr capsule Take 0.8 mg by mouth at bedtimeActive Family History RelationNameStatusCommentsFatherDeceasedMotherDeceased Social History Tobacco UseTypesPacks/DayYears UsedDateSmoking Tobacco: Never Tobacco Cessation:Counseling Given: Not Answered Alcohol UseStandard Drinks/WeekCommentsNever0 (1 standard drink = 0.6 oz pure alcohol)Sex and Gender InformationValueDate RecordedSex Assigned at BirthNot on fileLegal AsvOrzh4705/12/2022 7:36 PM EDTGender EuqzcfckHdno13/15/2023 7:36 PM EDT Sexual OrientationNot on file Last Filed Vital Signs Vital SignReadingTime TakenCommentsBlood Zzytuffh585/6008 12:00 PM EDT Pulse--Temperature--Respiratory Rate--Oxygen Saturation--Inhaled Oxygen Concentration--Qjvoxt86.6 kg (180 lb)10/03/2024 8:52 AM LMSPkhogd922.7 cm (5' 10.75 )10/03/2024 8:52 AM EDTBody Mass Index25.28010/03/2024 8:52 AM EDT Plan of Treatment Not on file Insurance Care Teams Team MemberRelationshipSpecialtyStart DateEnd Date Kobe Nj DO [address] [place] [phone] PCP - GeneralInternal Medicine09/19/24
[2025-02-18 08:36] LABS: Hematocrit 46.1 % (42.0-54.0); Hemoglobin 14.8 g/dL (14.0-18.0); Immature Granulocytes Abs Auto 0.01 10^3/uL (0.00-0.03); Immature Granulocytes Pct Auto 0.2 % (0.0-0.5); Lymphocytes Absolute Auto 1.1 10^3/uL (1.2-3.8); Mean Corpuscular HGB Conc 32.1 g/dL (29.9-35.2); Mean Corpuscular Hemoglobin 28.5 pg (25.9-34.0); Mean Corpuscular Volume 88.8 fL (80.0-94.0); Platelet Count 210 10^3/uL (150-450); Red Blood Count 5.19 10^6/uL (4.70-6.10); White Blood Count 4.3 10^3/uL (4.0-11.0)
== END 2025-02-18 08:04 | disposition home or self-care (01) ==
PROVIDERS: PCP Internal Medicine; Visit Provider Internal Medicine
DX: D72.819 Decreased white blood cell count, unspecified (principal); T56.0X1D 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, accidental (unintentional), subsequent encounter
CPT/HCPCS: 36415; 83655; 85025